=== PATIENT | female | born 1970 | race Caucasian/White ===

== ENCOUNTER 2021-07-08 22:28 | Inpatient (IN) | payer MEDICAID ==
[~2021-07-08] VITALS: Ht 170.2 cm; Wt 172.4 kg
[2021-07-08] MEDS ORDERED: HEPARIN 25,000UTS/250ML PREMIX 250 ML IV PRN (23:00)
[2021-07-08] MEDS ORDERED: ANTI-COAG MONITOR BY PHARMACY. MC PRN (23:15)
[2021-07-08 23:20] LABS: BASO % 0 % (0-3); EOS % 0 % (0-3); HEMATOCRIT 47.3 % (36.0-47.0); HEMOGLOBIN 16.2 g/dL (12.0-15.5); LYMPH # 1.8 x10^3/uL (1.0-4.8); LYMPH % 19 % (24-48); MEAN CORPUSCULAR HEMOGLOBIN 33 pg (25-35); MEAN CORPUSCULAR HGB CONC 34 g/dL (31-37); MEAN CORPUSCULAR VOLUME 96 fL (79-100); MONO # 0.7 x10^3/uL (0.0-1.1); MONO % 8 % (0-9); NEUT % 73 % (31-73); PLATELET COUNT 177 x10^3/uL (140-400); RED BLOOD COUNT 4.91 x10^6/uL (3.50-5.40); RED CELL DISTRIBUTION WIDTH 13.1 % (11.5-14.5); WHITE BLOOD COUNT 9.6 x10^3/uL (4.0-11.0)
[2021-07-08] MEDS ORDERED: HEPARIN for ARTERIAL LINE 1,500 ML ONE (23:25)
[2021-07-08] MEDS ORDERED: LIDOCAINE 1% Multi-Dose 20 ML VIAL. ONE (23:25)
[2021-07-08] MEDS ORDERED: IODIXANOL 320 MG/ML 100 ML VIAL. ONE (23:25)
[2021-07-08] MEDS ORDERED: MIDAZOLAM HCL/PF 2 MG/2 ML VIAL. ONE (23:26)
[2021-07-08] MEDS ORDERED: fentaNYL PF VIAL 100 MCG/2 ML VIAL ONE (23:26)
[2021-07-08] MEDS ORDERED: HEPARIN for IV BOLUS 10,000 UNIT/10 ML VIAL. IV ONE (23:30)
[2021-07-08 23:31] LABS: PROTHROMBIN TIME PATIENT 13.3 SEC (11.7-14.0)
[2021-07-08 23:35] LABS: CALCIUM 9.3 mg/dL (8.5-10.1); CREATININE 1.3 mg/dL (0.6-1.0); GFR 43.5
--- NOTE | 2021-07-08 23:39 | RAD ---
INDICATION: Reason: STEMI / Spl. Instructions: / History: COMPARISON: None. FINDINGS: Single view of chest obtained. Cardiac silhouette mildly prominent but likely exaggerated by portable technique. Mild interstitial prominence bilaterally. Mild groundglass opacity IMPRESSION: * Mild interstitial and groundglass opacity. Could be from mild edema or interstitial infiltrate Electronically signed by: Luciano Ta MD (07/08/2021 11:36 PM) [id number]
[2021-07-08 23:41] LABS: ALBUMIN 3.8 g/dL (3.4-5.0); ALBUMIN/GLOBULIN RATIO 0.8 (1.0-1.7); TOTAL BILIRUBIN 0.5 mg/dL (0.2-1.0); TOTAL PROTEIN 8.5 g/dL (6.4-8.2)
[2021-07-08] MEDS ORDERED: BIVALIRUDIN 250 MG VIAL. IVP ONE (23:47)
[2021-07-09] VITALS (36 sets, daily range): BP systolic 115–190; BP diastolic 52–112
[2021-07-09] MEDS ORDERED: NITROGLYCERIN PREMIX 250 ML IV ONE (00:02)
[2021-07-09] MEDS ORDERED: NITROGLYCERIN PREMIX 250 ML IV PRN ×2 (00:05→01:30)
[2021-07-09] MEDS ORDERED: TIROFIBAN 12.5MG -0.9% NS 250 ML IV ONE (00:07)
[2021-07-09] MEDS ORDERED: TIROFIBAN 12.5MG -0.9% NS 250 ML IV PRN (00:15)
[2021-07-09] MEDS ORDERED: fentaNYL PF VIAL 100 MCG/2 ML VIAL IV ONE (00:30)
[2021-07-09] MEDS ORDERED: MIDAZOLAM HCL/PF 2 MG/2 ML VIAL. IV ONE (00:30)
[2021-07-09] MEDS ORDERED: LIDOCAINE 1% Multi-Dose 20 ML VIAL. INJ ONE (00:30)
[2021-07-09] MEDS ORDERED: TICAGRELOR 90 MG TABLET. PO ONE (00:45)
[2021-07-09] MEDS ORDERED: IODIXANOL 320 MG/ML 100 ML VIAL. IART ONE (00:45)
--- NOTE | 2021-07-09 00:45 | PDOC2 ---
CONSULT Date of Consult Date of Consult DATE: 07/09/21 TIME: 00:39 Reason for Consult Reason for Consult: Acute myocardial infarction. Referring Physician Referring Physician: ER Identification/Chief Complaint Chief Complaint Chest pain Source Source: Chart review, Patient History of Present Illness Reason for Visit: The patient is a 51-year-old female with a history of COPD who was at a concert last evening and developed shortness of breath and chest pressure. She was brought to the emergency room and her EKG showed inferior ST elevation although no reciprocal changes. She was treated with heparin. Upon evaluation she has a strong family history of coronary artery disease but denies any personal history of coronary disease, diabetes or hypertension. She was initially treated with aspirin and heparin but continues to have chest discomfort although decreased. In this setting we recommended cardiac catheterization. Risks and benefits of emergency heart catheterization were discussed with the patient and she gave consent to proceed. Past Medical History Pulmonary: COPD Past Surgical History Past Surgical History: Other (Left ankle surgery) Family History Family History: Heart Disease Social History Drugs: Marijuana, Other (The patient uses medical marijuana for chronic left ankle pain) Current Problem List Problem List Problems Medical Problems: (1) STEMI (ST elevation myocardial infarction) Status: Acute Current Medications Current Medications Current Medications Heparin Sodium (Porcine) (Heparin Sodium) 4,000 unit 1X ONCE IV Last administered on 07/08/21at 23:27; Start 07/08/21 at 23:30; Stop 07/08/21 at 23:31; Status DC Heparin Sodium/ Dextrose 250 ml @ 10 mls/hr CONT PRN IV PER PROTOCOL Last administered on 07/08/21at 23:27; Start 07/08/21 at 23:00 Info (Anti-Coagulation Monitoring By Pharmacy) 1 each PRN DAILY PRN MC PER PROTOCOL; Start 07/08/21 at 23:15 Iodixanol (Visipaque 320) 100 ml STK-MED ONCE .ROUTE ; Start 07/08/21 at 23:25; Stop 07/08/21 at 23:25; Status DC Lidocaine HCl (Lidocaine 1% 20ml Vial) 20 ml STK-MED ONCE .ROUTE ; Start 07/08/21 at 23:25; Stop 07/08/21 at 23:25; Status DC Heparin Sodium/ Sodium Chloride 1,500 ml @ As Directed STK-MED ONCE .ROUTE ; Start 07/08/21 at 23:25; Stop 07/08/21 at 23:25; Status DC Fentanyl Citrate (Fentanyl 2ml Vial) 100 mcg STK-MED ONCE .ROUTE ; Start 07/08/21 at 23:26; Stop 07/08/21 at 23:27; Status DC Midazolam HCl (Versed) 2 mg STK-MED ONCE .ROUTE ; Start 07/08/21 at 23:26; Stop 07/08/21 at 23:27; Status DC Bivalirudin (Angiomax) 250 mg STK-MED ONCE IVP ; Start 07/08/21 at 23:47; Stop 07/08/21 at 23:48; Status DC Nitroglycerin/ Dextrose 250 ml @ As Directed STK-MED ONCE IV ; Start 07/09/21 at 00:02; Stop 07/09/21 at 00:02; Status DC Tirofiban/Sodium Chloride 250 ml @ As Directed STK-MED ONCE IV ; Start 07/09/21 at 00:07; Stop 07/09/21 at 00:07; Status DC Heparin Sodium/ Sodium Chloride 500 ml @ As Directed STK-MED ONCE .ROUTE ; Start 07/09/21 at 00:11; Stop 07/09/21 at 00:11; Status DC Heparin Sodium/ Sodium Chloride (HEPARIN for ARTERIAL LINE FLUSH) 1,000 unit 1X ONCE IART ; Start 07/09/21 at 00:15; Stop 07/09/21 at 00:35; Status DC Heparin Sodium/ Sodium Chloride (HEPARIN for ARTERIAL LINE FLUSH) 1,000 unit 1X ONCE IART ; Start 07/09/21 at 00:15; Stop 07/09/21 at 00:35; Status DC Midazolam HCl (Versed) 2 mg 1X ONCE IV ; Start 07/09/21 at 00:30; Stop 07/09/21 at 00:35; Status DC Fentanyl Citrate (Fentanyl 2ml Vial) 100 mcg 1X ONCE IV ; Start 07/09/21 at 00:30; Stop 07/09/21 at 00:35; Status DC Iodixanol (Visipaque 320) 100 ml 1X ONCE IART ; Start 07/09/21 at 00:45; Stop 07/09/21 at 00:46 Ticagrelor (Brilinta) 180 mg 1X ONCE PO ; Start 07/09/21 at 00:45; Stop 07/09/21 at 00:46 Lidocaine HCl (Lidocaine 1% 20ml Vial) 20 ml 1X ONCE INJ ; Start 07/09/21 at 00:30; Stop 07/09/21 at 00:35; Status DC Tirofiban/Sodium Chloride 250 ml @ 31.086 mls/ hr CONT PRN IV PER PROTOCOL; Start 07/09/21 at 00:15 Nitroglycerin/ Dextrose 250 ml @ 1.5 mls/hr PRN DAILY PRN IV ELEVATED BP, SEE COMMENTS; Start 07/09/21 at 00:15 Allergies Allergies: Coded Allergies: doxycycline (Verified Allergy, Intermediate, Rash, 07/08/21) meloxicam (Verified Allergy, Intermediate, 07/08/21) ROS Respiratory: YES: Shortness of breath Cardiovascular: yes Chest Pain Physical Exam General: mild distress HEENT: Atraumatic Lungs: Other (Mildly decreased breath sounds) Heart: Regular rate Abdomen: Normal bowel sounds Vitals VITALS Vital Signs Date Time Temp Pulse Resp B/P (MAP) Pulse Ox O2 Delivery O2 Flow Rate FiO2 07/08/21 23:22 70 208/124 (152) 07/08/21 22:28 97.2 20 99 Room Air 97.2 Labs Labs Laboratory Tests Test 07/08/21 22:40 White Blood Count 9.6 x10^3/uL (4.0-11.0) Red Blood Count 4.91 x10^6/uL (3.50-5.40) Hemoglobin 16.2 g/dL (12.0-15.5) Hematocrit 47.3 % (36.0-47.0) Mean Corpuscular Volume 96 fL (79-100) Mean Corpuscular Hemoglobin 33 pg (25-35) Mean Corpuscular Hemoglobin Concent 34 g/dL (31-37) Red Cell Distribution Width 13.1 % (11.5-14.5) Platelet Count 177 x10^3/uL (140-400) Neutrophils (%) (Auto) 73 % (31-73) Lymphocytes (%) (Auto) 19 % (24-48) Monocytes (%) (Auto) 8 % (0-9) Eosinophils (%) (Auto) 0 % (0-3) Basophils (%) (Auto) 0 % (0-3) Neutrophils # (Auto) 7.0 x10^3/uL (1.8-7.7) Lymphocytes # (Auto) 1.8 x10^3/uL (1.0-4.8) Monocytes # (Auto) 0.7 x10^3/uL (0.0-1.1) Eosinophils # (Auto) 0.0 x10^3/uL (0.0-0.7) Basophils # (Auto) 0.0 x10^3/uL (0.0-0.2) Prothrombin Time 13.3 SEC (11.7-14.0) Prothromb Time International Ratio 1.0 (0.8-1.1) Activated Partial Thromboplast Time 29 SEC (24-38) Sodium Level 134 mmol/L (136-145) Potassium Level 4.0 mmol/L (3.5-5.1) Chloride Level 99 mmol/L (98-107) Carbon Dioxide Level 23 mmol/L (21-32) Anion Gap 12 (6-14) Blood Urea Nitrogen 15 mg/dL (7-20) Creatinine 1.3 mg/dL (0.6-1.0) Estimated GFR (Cockcroft-Gault) 43.5 BUN/Creatinine Ratio 12 (6-20) Glucose Level 124 mg/dL (70-99) Calcium Level 9.3 mg/dL (8.5-10.1) Total Bilirubin 0.5 mg/dL (0.2-1.0) Aspartate Amino Transf (AST/SGOT) 34 U/L (15-37) Alanine Aminotransferase (ALT/SGPT) 48 U/L (14-59) Alkaline Phosphatase 62 U/L (46-116) Troponin I High Sensitivity 29 ng/L (4-50) JM-Mec-I-Type Natriuretic Peptide 108 pg/mL (0-124) Total Protein 8.5 g/dL (6.4-8.2) Albumin 3.8 g/dL (3.4-5.0) Albumin/Globulin Ratio 0.8 (1.0-1.7) Laboratory Tests Test 07/08/21 22:40 White Blood Count 9.6 x10^3/uL (4.0-11.0) Red Blood Count 4.91 x10^6/uL (3.50-5.40) Hemoglobin 16.2 g/dL (12.0-15.5) Hematocrit 47.3 % (36.0-47.0) Mean Corpuscular Volume 96 fL (79-100) Mean Corpuscular Hemoglobin 33 pg (25-35) Mean Corpuscular Hemoglobin Concent 34 g/dL (31-37) Red Cell Distribution Width 13.1 % (11.5-14.5) Platelet Count 177 x10^3/uL (140-400) Neutrophils (%) (Auto) 73 % (31-73) Lymphocytes (%) (Auto) 19 % (24-48) Monocytes (%) (Auto) 8 % (0-9) Eosinophils (%) (Auto) 0 % (0-3) Basophils (%) (Auto) 0 % (0-3) Neutrophils # (Auto) 7.0 x10^3/uL (1.8-7.7) Lymphocytes # (Auto) 1.8 x10^3/uL (1.0-4.8) Monocytes # (Auto) 0.7 x10^3/uL (0.0-1.1) Eosinophils # (Auto) 0.0 x10^3/uL (0.0-0.7) Basophils # (Auto) 0.0 x10^3/uL (0.0-0.2) Prothrombin Time 13.3 SEC (11.7-14.0) Prothromb Time International Ratio 1.0 (0.8-1.1) Activated Partial Thromboplast Time 29 SEC (24-38) Sodium Level 134 mmol/L (136-145) Potassium Level 4.0 mmol/L (3.5-5.1) Chloride Level 99 mmol/L (98-107) Carbon Dioxide Level 23 mmol/L (21-32) Anion Gap 12 (6-14) Blood Urea Nitrogen 15 mg/dL (7-20) Creatinine 1.3 mg/dL (0.6-1.0) Estimated GFR (Cockcroft-Gault) 43.5 BUN/Creatinine Ratio 12 (6-20) Glucose Level 124 mg/dL (70-99) Calcium Level 9.3 mg/dL (8.5-10.1) Total Bilirubin 0.5 mg/dL (0.2-1.0) Aspartate Amino Transf (AST/SGOT) 34 U/L (15-37) Alanine Aminotransferase (ALT/SGPT) 48 U/L (14-59) Alkaline Phosphatase 62 U/L (46-116) Troponin I High Sensitivity 29 ng/L (4-50) YP-Abu-X-Type Natriuretic Peptide 108 pg/mL (0-124) Total Protein 8.5 g/dL (6.4-8.2) Albumin 3.8 g/dL (3.4-5.0) Albumin/Globulin Ratio 0.8 (1.0-1.7) Assessment/Plan Assessment/Plan 1. Acute onset of chest pain. Patient has been initially treated with heparin and aspirin. Her EKG shows inferior ST elevation but no reciprocal changes. She has continued to have chest discomfort. In this setting as above we have have recommended emergency cardiac catheterization. Risks and benefits have been discussed with the patient and she has agreed to proceed. 2. History of COPD. Will resume home medications. 3. Morbid obesity. Will check morning lab including glucose and a lipid panel. DIXIE CONTI MD Jul 09, 2021 00:45
[2021-07-09] MEDS ORDERED: TICAGRELOR 90 MG TABLET. ONE (00:49)
--- NOTE | 2021-07-09 01:00 | NUR ---
Pt arrived from [facility]istics [facility] gun[facility] via bed. Pt is alert and oriented. Assessment completed and documented. No needs at this time.
[2021-07-09] MEDS: NITROGLYCERIN PREMIX 250 ML IV PRN (02:31)
--- NOTE | 2021-07-09 04:18 | EKG ---
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
[2021-07-09] MEDS: TIROFIBAN 12.5MG -0.9% NS 250 ML IV PRN ×3 (05:05→17:01)
[2021-07-09] MEDS: ACETAMINOPHEN 325 MG TABLET. PO PRN (06:02)
[2021-07-09] MEDS ORDERED: MORPHINE SULFATE 4 MG/ML INJ. IV ONE (11:15)
--- NOTE | 2021-07-09 12:00 | NUR ---
Pt called in professional housing consultant light at approximately 1100. This nurse went to pt room to answer call light in person. Pt asked "Tell me again why I have this thing in my leg?" This nurse explained the purpose of the sheath and approximately how long it would stay in. This nurse and pt had several discussions throughout the morning about the importance of laying flat and keeping the right leg straight and other pertinent education regarding the sheath, hospital stay and medications. Pt started yelling and cussing at this nurse and stating that she "needed the sheath removed immediately." The pt has been calm and cooperative thus far during this shift. This nurse informed the pt that this nurse would notify the MD and see what the possibilities are. This nurse asked the pt needed repositioning or if pain medication would help the pt be more comfortable. The pt laughed and stated that "tylenol is poison" and that "the hospital won't prescribe the REAL medication that I need" and yelled and cussed this nurse out again. She did state that she "OBVIOUSLY needs something for anxiety." This nurse asked if the pt felt comfortable taking something for anxiety and the pt stated "I am really trying to not get ugly right now. GET OUT OF MY FACE!" This nurse notified c++ professor regarding sheath pain and pt request. This nurse also notified the hospitalist regarding the pt behavior and pt requests for medication. Orders received. Pt agreeable to receive pain and anxiety medication. Medications given to pt. At reassessment pt verbalized that she "felt much better" and denied any further needs.
--- NOTE | 2021-07-09 12:17 | PDOC ---
GENERAL General: History and physical [id number] VITAL SIGNS Vital Signs/I&O: Vital Signs Date Time Temp Pulse Resp B/P (MAP) Pulse Ox O2 Delivery O2 Flow Rate FiO2 07/09/21 11:23 19 07/09/21 09:40 62 152/80 (104) 07/09/21 06:00 94 Nasal Cannula 2.0 07/09/21 04:00 98.3 98.3 I & O 07/08/21 07/08/21 07/09/21 15:00 23:00 07:00 Intake Total 444 ml Output Total 825 ml Balance -381 ml ALLERGIES Allergies: Allergies Coded Allergies Type Severity Reaction Last Updated Verified doxycycline Allergy Intermediate Rash 07/08/21 Yes meloxicam Allergy Intermediate 07/08/21 Yes MEDS Medications: Current Medications Medications (Trade) Dose Ordered Sig/Frankie Route PRN Reason Start Time Stop Time Status Last Admin Dose Admin Heparin Sodium (Porcine) (Heparin Sodium) 4,000 unit 1X ONCE IV 07/08/21 23:30 07/08/21 23:31 DC 07/08/21 23:27 Heparin Sodium/ Dextrose 250 ml @ 10 mls/hr CONT PRN IV PER PROTOCOL 07/08/21 23:00 07/08/21 23:27 Info (Anti-Coagulation Monitoring By Pharmacy) 1 each PRN DAILY PRN MC PER PROTOCOL 07/08/21 23:15 07/09/21 04:47 Heparin Sodium/ Sodium Chloride (HEPARIN for ARTERIAL LINE FLUSH) 1,000 unit 1X ONCE IART 07/09/21 00:15 07/09/21 00:35 DC 07/09/21 01:16 Heparin Sodium/ Sodium Chloride (HEPARIN for ARTERIAL LINE FLUSH) 1,000 unit 1X ONCE IART 07/09/21 00:15 07/09/21 00:35 DC 07/09/21 01:16 Midazolam HCl (Versed) 2 mg 1X ONCE IV 07/09/21 00:30 07/09/21 00:35 DC 07/09/21 01:16 Fentanyl Citrate (Fentanyl 2ml Vial) 100 mcg 1X ONCE IV 07/09/21 00:30 07/09/21 00:35 DC 07/09/21 01:17 Iodixanol (Visipaque 320) 100 ml 1X ONCE IART 07/09/21 00:45 07/09/21 00:46 DC 07/09/21 01:18 Ticagrelor (Brilinta) 180 mg 1X ONCE PO 07/09/21 00:45 07/09/21 00:46 DC 07/09/21 01:18 Lidocaine HCl (Lidocaine 1% 20ml Vial) 20 ml 1X ONCE INJ 07/09/21 00:30 07/09/21 00:35 DC 07/09/21 01:17 Tirofiban/Sodium Chloride 250 ml @ 31.086 mls/ hr CONT PRN IV PER PROTOCOL 07/09/21 00:15 07/09/21 08:36 Nitroglycerin/ Dextrose 250 ml @ 1.5 mls/hr PRN DAILY PRN IV ELEVATED BP, SEE COMMENTS 07/09/21 00:15 07/09/21 02:31 Tirofiban/Sodium Chloride 250 ml @ 31.086 mls/ hr CONT PRN IV SEE ADMIN INSTRUCTIONS 07/09/21 00:15 07/09/21 04:13 DC 07/09/21 01:15 Nitroglycerin/ Dextrose 250 ml @ 0 mls/hr 1X PRN IV ELEVATED BP, SEE COMMENTS 07/09/21 00:05 07/09/21 01:25 DC 07/09/21 01:22 Acetaminophen (Tylenol) 650 mg PRN Q6HRS PRN PO MILD PAIN / TEMP > 100.3'F 07/09/21 06:00 07/09/21 06:02 Lorazepam (Ativan Inj) 1 mg 1X ONCE IVP 07/09/21 11:15 07/09/21 11:16 DC 07/09/21 11:18 Morphine Sulfate (Morphine Sulfate) 3 mg 1X ONCE IV 07/09/21 11:15 07/09/21 11:16 DC 07/09/21 11:23 LAB Lab: Laboratory Tests Test 07/08/21 22:40 07/08/21 23:10 07/09/21 06:10 White Blood Count 9.6 x10^3/uL (4.0-11.0) Red Blood Count 4.91 x10^6/uL (3.50-5.40) Hemoglobin 16.2 g/dL (12.0-15.5) H Hematocrit 47.3 % (36.0-47.0) H Mean Corpuscular Volume 96 fL (79-100) Mean Corpuscular Hemoglobin 33 pg (25-35) Mean Corpuscular Hemoglobin Concent 34 g/dL (31-37) Red Cell Distribution Width 13.1 % (11.5-14.5) Platelet Count 177 x10^3/uL (140-400) Neutrophils (%) (Auto) 73 % (31-73) Lymphocytes (%) (Auto) 19 % (24-48) L Monocytes (%) (Auto) 8 % (0-9) Eosinophils (%) (Auto) 0 % (0-3) Basophils (%) (Auto) 0 % (0-3) Neutrophils # (Auto) 7.0 x10^3/uL (1.8-7.7) Lymphocytes # (Auto) 1.8 x10^3/uL (1.0-4.8) Monocytes # (Auto) 0.7 x10^3/uL (0.0-1.1) Eosinophils # (Auto) 0.0 x10^3/uL (0.0-0.7) Basophils # (Auto) 0.0 x10^3/uL (0.0-0.2) Prothrombin Time 13.3 SEC (11.7-14.0) Prothrombin Time INR 1.0 (0.8-1.1) Activated Partial Thromboplast Time 29 SEC (24-38) Sodium Level 134 mmol/L (136-145) L Potassium Level 4.0 mmol/L (3.5-5.1) Chloride Level 99 mmol/L (98-107) Carbon Dioxide Level 23 mmol/L (21-32) Anion Gap 12 (6-14) Blood Urea Nitrogen 15 mg/dL (7-20) Creatinine 1.3 mg/dL (0.6-1.0) H Estimated GFR (Cockcroft-Gault) 43.5 BUN/Creatinine Ratio 12 (6-20) Glucose Level 124 mg/dL (70-99) H Calcium Level 9.3 mg/dL (8.5-10.1) Total Bilirubin 0.5 mg/dL (0.2-1.0) Aspartate Amino Transferase (AST) 34 U/L (15-37) Alanine Aminotransferase (ALT) 48 U/L (14-59) Alkaline Phosphatase 62 U/L (46-116) Troponin I High Sensitivity 29 ng/L (4-50) WJ-Vmm-Y-Type Natriuretic Peptide 108 pg/mL (0-124) Total Protein 8.5 g/dL (6.4-8.2) H Albumin 3.8 g/dL (3.4-5.0) Albumin/Globulin Ratio 0.8 (1.0-1.7) L SARS-CoV-2 Antigen (Rapid) Negative (NEGATIVE) Heparin Anti-Xa Act, Unfractionated < 0.10 IU/mL (0.30-0.70) L Laboratory Tests 07/08/21 22:40 Laboratory Tests 07/08/21 22:40 Justifications for Admission Other Justification MEG SOMMERS MD Jul 09, 2021 12:17
--- NOTE | 2021-07-09 14:43 | PDOC ---
PROGRESS NOTES Date of Service DATE: 07/09/21 TIME: 14:40 Subjective Subjective Patient seen and examined Objective Objective Vital Signs Date Time Temp Pulse Resp B/P (MAP) Pulse Ox O2 Delivery O2 Flow Rate FiO2 07/09/21 12:00 Nasal Cannula 2.0 07/09/21 11:23 19 07/09/21 09:40 62 152/80 (104) 07/09/21 06:00 94 07/09/21 04:00 98.3 98.3 Intake and Output 07/09/21 07:00 Intake Total 444 ml Output Total 825 ml Balance -381 ml Intake Oral 120 ml IV Total 324 ml Output Urine Total 825 ml Physical Exam Abdomen: Normal bowel sounds Heart: Regular rate General: mild distress Lungs: Other (Slightly decreased breath sounds) Assessment Assessment Problems Medical Problems: (1) STEMI (ST elevation myocardial infarction) Status: Acute 1. Non-ST elevated myocardial infarction. Catheterization last night showed a moderate size mobile thrombus in the mid to distal right coronary artery with flow to the distal right coronary artery. Patient has been treated with Aggrastat overnight. She is now chest pain-free. Initial troponin of 29 with further troponins pending. We will continue present treatments. We we will consider discontinuing Aggrastat tomorrow and discontinuing her sheath pending her clinical course. 2. History of COPD. Will resume home medications. 3. Morbid obesity. Morning lab pending. 4. Anxiety. Patient uses medical marijuana at home. We will treat with antianxiety and pain medications as needed. Comment Review of Relevant I have reviewed the following items leandro (where applicable) has been applied. Labs Laboratory Tests Test 07/08/21 22:40 07/08/21 23:10 07/09/21 06:10 White Blood Count 9.6 x10^3/uL (4.0-11.0) Red Blood Count 4.91 x10^6/uL (3.50-5.40) Hemoglobin 16.2 g/dL (12.0-15.5) Hematocrit 47.3 % (36.0-47.0) Mean Corpuscular Volume 96 fL (79-100) Mean Corpuscular Hemoglobin 33 pg (25-35) Mean Corpuscular Hemoglobin Concent 34 g/dL (31-37) Red Cell Distribution Width 13.1 % (11.5-14.5) Platelet Count 177 x10^3/uL (140-400) Neutrophils (%) (Auto) 73 % (31-73) Lymphocytes (%) (Auto) 19 % (24-48) Monocytes (%) (Auto) 8 % (0-9) Eosinophils (%) (Auto) 0 % (0-3) Basophils (%) (Auto) 0 % (0-3) Neutrophils # (Auto) 7.0 x10^3/uL (1.8-7.7) Lymphocytes # (Auto) 1.8 x10^3/uL (1.0-4.8) Monocytes # (Auto) 0.7 x10^3/uL (0.0-1.1) Eosinophils # (Auto) 0.0 x10^3/uL (0.0-0.7) Basophils # (Auto) 0.0 x10^3/uL (0.0-0.2) Prothrombin Time 13.3 SEC (11.7-14.0) Prothromb Time International Ratio 1.0 (0.8-1.1) Activated Partial Thromboplast Time 29 SEC (24-38) Sodium Level 134 mmol/L (136-145) Potassium Level 4.0 mmol/L (3.5-5.1) Chloride Level 99 mmol/L (98-107) Carbon Dioxide Level 23 mmol/L (21-32) Anion Gap 12 (6-14) Blood Urea Nitrogen 15 mg/dL (7-20) Creatinine 1.3 mg/dL (0.6-1.0) Estimated GFR (Cockcroft-Gault) 43.5 BUN/Creatinine Ratio 12 (6-20) Glucose Level 124 mg/dL (70-99) Calcium Level 9.3 mg/dL (8.5-10.1) Total Bilirubin 0.5 mg/dL (0.2-1.0) Aspartate Amino Transf (AST/SGOT) 34 U/L (15-37) Alanine Aminotransferase (ALT/SGPT) 48 U/L (14-59) Alkaline Phosphatase 62 U/L (46-116) Troponin I High Sensitivity 29 ng/L (4-50) RN-Nrq-F-Type Natriuretic Peptide 108 pg/mL (0-124) Total Protein 8.5 g/dL (6.4-8.2) Albumin 3.8 g/dL (3.4-5.0) Albumin/Globulin Ratio 0.8 (1.0-1.7) SARS-CoV-2 Antigen (Rapid) Negative (NEGATIVE) Heparin Anti-Xa Act, Unfractionated < 0.10 IU/mL (0.30-0.70) Laboratory Tests Test 07/08/21 22:40 07/08/21 23:10 07/09/21 06:10 White Blood Count 9.6 x10^3/uL (4.0-11.0) Red Blood Count 4.91 x10^6/uL (3.50-5.40) Hemoglobin 16.2 g/dL (12.0-15.5) Hematocrit 47.3 % (36.0-47.0) Mean Corpuscular Volume 96 fL (79-100) Mean Corpuscular Hemoglobin 33 pg (25-35) Mean Corpuscular Hemoglobin Concent 34 g/dL (31-37) Red Cell Distribution Width 13.1 % (11.5-14.5) Platelet Count 177 x10^3/uL (140-400) Neutrophils (%) (Auto) 73 % (31-73) Lymphocytes (%) (Auto) 19 % (24-48) Monocytes (%) (Auto) 8 % (0-9) Eosinophils (%) (Auto) 0 % (0-3) Basophils (%) (Auto) 0 % (0-3) Neutrophils # (Auto) 7.0 x10^3/uL (1.8-7.7) Lymphocytes # (Auto) 1.8 x10^3/uL (1.0-4.8) Monocytes # (Auto) 0.7 x10^3/uL (0.0-1.1) Eosinophils # (Auto) 0.0 x10^3/uL (0.0-0.7) Basophils # (Auto) 0.0 x10^3/uL (0.0-0.2) Prothrombin Time 13.3 SEC (11.7-14.0) Prothromb Time International Ratio 1.0 (0.8-1.1) Activated Partial Thromboplast Time 29 SEC (24-38) Sodium Level 134 mmol/L (136-145) Potassium Level 4.0 mmol/L (3.5-5.1) Chloride Level 99 mmol/L (98-107) Carbon Dioxide Level 23 mmol/L (21-32) Anion Gap 12 (6-14) Blood Urea Nitrogen 15 mg/dL (7-20) Creatinine 1.3 mg/dL (0.6-1.0) Estimated GFR (Cockcroft-Gault) 43.5 BUN/Creatinine Ratio 12 (6-20) Glucose Level 124 mg/dL (70-99) Calcium Level 9.3 mg/dL (8.5-10.1) Total Bilirubin 0.5 mg/dL (0.2-1.0) Aspartate Amino Transf (AST/SGOT) 34 U/L (15-37) Alanine Aminotransferase (ALT/SGPT) 48 U/L (14-59) Alkaline Phosphatase 62 U/L (46-116) Troponin I High Sensitivity 29 ng/L (4-50) DH-Zef-H-Type Natriuretic Peptide 108 pg/mL (0-124) Total Protein 8.5 g/dL (6.4-8.2) Albumin 3.8 g/dL (3.4-5.0) Albumin/Globulin Ratio 0.8 (1.0-1.7) SARS-CoV-2 Antigen (Rapid) Negative (NEGATIVE) Heparin Anti-Xa Act, Unfractionated < 0.10 IU/mL (0.30-0.70) Medications Current Medications Heparin Sodium (Porcine) (Heparin Sodium) 4,000 unit 1X ONCE IV Last administered on 07/08/21at 23:27; Start 07/08/21 at 23:30; Stop 07/08/21 at 23:31; Status DC Heparin Sodium/ Dextrose 250 ml @ 10 mls/hr CONT PRN IV PER PROTOCOL Last administered on 07/08/21at 23:27; Start 07/08/21 at 23:00 Info (Anti-Coagulation Monitoring By Pharmacy) 1 each PRN DAILY PRN MC PER PROTOCOL Last administered on 07/09/21at 04:47; Start 07/08/21 at 23:15 Iodixanol (Visipaque 320) 100 ml STK-MED ONCE .ROUTE ; Start 07/08/21 at 23:25; Stop 07/08/21 at 23:25; Status DC Lidocaine HCl (Lidocaine 1% 20ml Vial) 20 ml STK-MED ONCE .ROUTE ; Start 07/08/21 at 23:25; Stop 07/08/21 at 23:25; Status DC Heparin Sodium/ Sodium Chloride 1,500 ml @ As Directed STK-MED ONCE .ROUTE ; Start 07/08/21 at 23:25; Stop 07/08/21 at 23:25; Status DC Fentanyl Citrate (Fentanyl 2ml Vial) 100 mcg STK-MED ONCE .ROUTE ; Start 07/08/21 at 23:26; Stop 07/08/21 at 23:27; Status DC Midazolam HCl (Versed) 2 mg STK-MED ONCE .ROUTE ; Start 07/08/21 at 23:26; Stop 07/08/21 at 23:27; Status DC Bivalirudin (Angiomax) 250 mg STK-MED ONCE IVP ; Start 07/08/21 at 23:47; Stop 07/08/21 at 23:48; Status DC Nitroglycerin/ Dextrose 250 ml @ As Directed STK-MED ONCE IV ; Start 07/09/21 at 00:02; Stop 07/09/21 at 00:02; Status DC Tirofiban/Sodium Chloride 250 ml @ As Directed STK-MED ONCE IV ; Start 07/09/21 at 00:07; Stop 07/09/21 at 00:07; Status DC Heparin Sodium/ Sodium Chloride 500 ml @ As Directed STK-MED ONCE .ROUTE ; Start 07/09/21 at 00:11; Stop 07/09/21 at 00:11; Status DC Heparin Sodium/ Sodium Chloride (HEPARIN for ARTERIAL LINE FLUSH) 1,000 unit 1X ONCE IART Last administered on 07/09/21at 01:16; Start 07/09/21 at 00:15; Stop 07/09/21 at 00:35; Status DC Heparin Sodium/ Sodium Chloride (HEPARIN for ARTERIAL LINE FLUSH) 1,000 unit 1X ONCE IART Last administered on 07/09/21at 01:16; Start 07/09/21 at 00:15; Stop 07/09/21 at 00:35; Status DC Midazolam HCl (Versed) 2 mg 1X ONCE IV Last administered on 07/09/21at 01:16; Start 07/09/21 at 00:30; Stop 07/09/21 at 00:35; Status DC Fentanyl Citrate (Fentanyl 2ml Vial) 100 mcg 1X ONCE IV Last administered on 07/09/21at 01:17; Start 07/09/21 at 00:30; Stop 07/09/21 at 00:35; Status DC Iodixanol (Visipaque 320) 100 ml 1X ONCE IART Last administered on 07/09/21at 01:18; Start 07/09/21 at 00:45; Stop 07/09/21 at 00:46; Status DC Ticagrelor (Brilinta) 180 mg 1X ONCE PO Last administered on 07/09/21at 01:18; Start 07/09/21 at 00:45; Stop 07/09/21 at 00:46; Status DC Lidocaine HCl (Lidocaine 1% 20ml Vial) 20 ml 1X ONCE INJ Last administered on 07/09/21at 01:17; Start 07/09/21 at 00:30; Stop 07/09/21 at 00:35; Status DC Tirofiban/Sodium Chloride 250 ml @ 31.086 mls/ hr CONT PRN IV PER PROTOCOL Last administered on 07/09/21at 08:36; Start 07/09/21 at 00:15 Nitroglycerin/ Dextrose 250 ml @ 1.5 mls/hr PRN DAILY PRN IV ELEVATED BP, SEE COMMENTS Last administered on 07/09/21at 02:31; Start 07/09/21 at 00:15 Ticagrelor (Brilinta) 90 mg STK-MED ONCE .ROUTE ; Start 07/09/21 at 00:49; Stop 07/09/21 at 00:50; Status DC Tirofiban/Sodium Chloride 250 ml @ 31.086 mls/ hr CONT PRN IV SEE ADMIN INSTRUCTIONS Last administered on 07/09/21at 01:15; Start 07/09/21 at 00:15; Stop 07/09/21 at 04:13; Status DC Nitroglycerin/ Dextrose 250 ml @ 0 mls/hr 1X PRN IV ELEVATED BP, SEE COMMENTS Last administered on 07/09/21at 01:22; Start 07/09/21 at 00:05; Stop 07/09/21 at 01:25; Status DC Nitroglycerin/ Dextrose 250 ml @ 1.5 mls/hr 1X PRN PRN IV ELEVATED BP, SEE COMMENTS; Start 07/09/21 at 01:30 Acetaminophen (Tylenol) 650 mg PRN Q6HRS PRN PO MILD PAIN / TEMP > 100.3'F Last administered on 07/09/21at 06:02; Start 07/09/21 at 06:00 Lorazepam (Ativan Inj) 1 mg 1X ONCE IVP Last administered on 07/09/21at 11:18; Start 07/09/21 at 11:15; Stop 07/09/21 at 11:16; Status DC Morphine Sulfate (Morphine Sulfate) 3 mg 1X ONCE IV Last administered on 07/09/21at 11:23; Start 07/09/21 at 11:15; Stop 07/09/21 at 11:16; Status DC Morphine Sulfate (Morphine Sulfate) 2 mg Q3HRS PRN IVP PAIN; Start 07/09/21 at 11:15 Lorazepam (Ativan Inj) 1 mg TID PRN PRN IVP ANXIETY / AGITATION; Start 07/09/21 at 11:30 Vitals/I & O Vital Sign - Last 24 Hours 07/08/21 07/08/21 07/08/21 07/08/21 22:28 22:30 22:34 22:49 Temp 97.2 97.2 Pulse 69 86 82 83 Resp 20 B/P (MAP) 183/122 (142) 183/122 (142) 205/86 (125) 183/109 (133) Pulse Ox 99 O2 Delivery Room Air 07/08/21 07/08/21 07/09/21 07/09/21 23:00 23: 00:50 01:00 Temp 98.1 98.1 Pulse 95 70 67 62 Resp 21 20 B/P (MAP) 189/119 (142) 208/124 (152) 166/87 Pulse Ox 96 97 O2 Delivery Nasal Cannula Nasal Cannula O2 Flow Rate 2.0 2.0 07/09/21 07/09/21 07/09/21 07/09/21 01:00 01:17 02:00 02:20 Pulse 60 56 Resp 21 20 20 B/P (MAP) 168/86 176/84 Pulse Ox 96 98 98 O2 Delivery Nasal Cannula Nasal Cannula Nasal Cannula Nasal Cannula O2 Flow Rate 2.0 2.0 2.0 2.0 07/09/21 07/09/21 07/09/21 07/09/21 02:25 02:30 02:40 02:50 Pulse 56 64 58 58 Resp 20 20 20 20 B/P (MAP) 190/88 170/86 174/82 180/84 Pulse Ox 98 97 97 97 O2 Delivery Nasal Cannula Nasal Cannula Nasal Cannula Nasal Cannula O2 Flow Rate 2.0 2.0 2.0 2.0 07/09/21 07/09/21 07/09/21 07/09/21 03:00 03:30 04:00 04:00 Temp 98.3 98.3 Pulse 60 60 62 Resp 20 20 20 B/P (MAP) 178/84 170/82 160/78 Pulse Ox 96 96 94 O2 Delivery Nasal Cannula Nasal Cannula Nasal Cannula Nasal Cannula O2 Flow Rate 2.0 2.0 2.0 2.0 07/09/21 07/09/21 07/09/21 07/09/21 05:00 06:00 08:00 09:40 Pulse 60 62 62 Resp 18 18 B/P (MAP) 156/76 152/80 152/80 (104) Pulse Ox 94 94 O2 Delivery Nasal Cannula Nasal Cannula Nasal Cannula O2 Flow Rate 2.0 2.0 2.0 07/09/21 07/09/21 07/09/21 11:23 11:53 12:00 Resp 19 O2 Delivery Nasal Cannula Nasal Cannula O2 Flow Rate 2.0 2.0 Intake and Output 07/08/21 07/08/21 07/09/21 15:00 23:00 07:00 Intake Total 444 ml Output Total 825 ml Balance -381 ml Justifications for Admission Other Justification DIXIE CONTI MD Jul 09, 2021 14:43
[2021-07-09] MEDS: ASPIRIN ENTERIC COATED 81 MG TABLET.DR. PO SCH (15:00)
--- NOTE | 2021-07-09 16:00 | NUR ---
Labs were unable to be drawn from arterial line. It no longer pulls back blood or flushes. Notified lab to come draw blood. Notified MD about arterial line status. Orders to remove. Discussed this with pt, she verbalized understanding.
[2021-07-09] MEDS: MORPHINE SULFATE 2 MG/ML INJ. IVP PRN ×3 (16:10→23:11)
--- NOTE | 2021-07-09 17:16 | CARD ---
MR#: [id number] Date of Study: 07/08/2021 Ordering Physician: DIXIE MENA, Referring Physician: DIXIE MENA, Tech: Isabella Connauаннаolena, RT(R) APPROVED REPORT Procedures Selective coronary angiogram. The patient is a 51-year-old female who developed chest discomfort earlier in the evening. She was b rought to the emergency room and her EKG showed inferior ST elevation but no reciprocal changes. She was treated with heparin and aspirin but continued to have discomfort. In this setting a cardiac ca theterization and possible revascularization was recommended. Risks and benefits were discussed with the patient and she gave consent to proceed. After informed consent was obtained the patient was brought to the heart catheterization lab. The ar ea of the right femoral artery was prepared in the usual manner with Betadine, sterile draping and lo angélica anesthetic. An 18-gauge needle was used to enter the right femoral artery, a wire placed and a 6 [place] sheath placed over the wire. A 6 [place] JL 4 diagnostic catheter was used to engage the left coronary system and sequential injections of various views were obtained. A 6 [place] JR4 guide with sideholes was then used to engage the right coronary artery. Sequential injections in various views were obtained. Review of the patient's images showed no left-sided disease. The right coronary was a moderate to moderately large vessel with a mid to distal nonocclusive thrombus present. Distal va sculature had normal flow. The catheter was removed for the patient. The sheath was sutured into pl sk[place]. The patient was moved to the ICU. At the conclusion of the case the patient had no chest pain and there were no immediate complications. Findings. Aortic root pressure of 148/84. Coronaries. Left main. Left main was a moderate size vessel. It had no lesions. Left anterior descending. The LAD was a moderate size vessel. It had no lesions. Left circumflex. The left circumflex was a moderate size vessel. It had no lesions. Right coronary artery. The right coronary was a moderate to moderately large vessel. It had a mid t o distal nonocclusive thrombus present. Distal filling was intact. <Conclusion> Single-vessel coronary artery disease. Nonocclusive thrombus in the right coronary artery as noted above. Patient will be initially treated with Aggrastat. The patient was pain-free at the conclusion of the case. Moderate sedation time of 60 minutes. Fluoroscopy time of 2.0 minutes. Dose. 48 Gycm2 Contrast 69 cc of VISI All protective equipment and devices were used during the procedure. The patient was independently monitored during the procedure. Estimated blood loss of 20 cc. Signed by : Dixie Mena MD Electronically Approved : 07/09/2021 17:16:38
--- NOTE | 2021-07-09 19:04 | HP ---
DATE OF SERVICE: 07/09/2021 ADMIT DATE: 07/09/2021 HISTORY OF PRESENT ILLNESS: This patient is a 51-year-old woman who lives in [place], [place], was in town for a concert when she developed substernal chest pressure and presented to the Emergency Department here for further care. She was seen by Dr. Zambrano in the middle of the night and the cardiac catheterization and Emergency Department notes are pending because of a computer issue in the middle of the night. I personally spoke with Dr. Zambrano and he tells me that she had a nonoccluding thrombus in her distal RCA. The plan was for continuous infusion of Tirofiban over the next 48 hours and then reassessment. The patient was using mushrooms and THC at the concert and some of her agitation this morning may be related to that. At the time of my interview this morning, she was calmer after a dose of Ativan, tells me that she does struggle with anxiety and at times will need Ativan at home. She does not take much otherwise in the way of medications. She had a young nephew in the room and we were not able to explore her illicit drug use any further. She is currently chest pain free. She says that prior to the concert yesterday, she was not having angina or any other symptoms. She did have some occasional mid abdominal pain over the last week. She has severe obesity and is limited by that, but did not feel any worsening shortness of air. She denied any cough, congestion, or any other new specific constitutional symptoms. All other systems reviewed and otherwise negative. PAST MEDICAL HISTORY: 1. Anxiety. 2. Illicit drug use. 3. Morbid obesity. MEDICATIONS: She does not take any routine meds at home. SOCIAL HISTORY: Needs to be explored further when she has more privacy. Young nephew was in the room at the time of the interview and was unable to be left by himself outside of the room. We will explore these items further tomorrow. FAMILY HISTORY: Reviewed in full and noncontributory to the present illness. PHYSICAL EXAMINATION: VITAL SIGNS: Reviewed since admission and are notable for that the patient has been afebrile. Blood pressure has been in the 150s-170s/80, heart rate is in the 60s and regular. She is breathing comfortably and saturating 94-96% on 2 liters. GENERAL: She is sleepy 51-year-old woman, alert and oriented x 3, in no acute distress. HEENT: Unremarkable for acute abnormality. NECK: Soft and supple. No adenopathy or thyromegaly noted. CHEST: Bilateral equal air entry, though diminished throughout. HEART: S1, S2 normal. Regular rate and rhythm. No murmurs or gallops are noted. ABDOMEN: Morbidly obese. Evidence of skin picking noted. No superimposed infection. No masses or organomegaly noted. EXTREMITIES: Exam is notable for a right distal medial foot wound for which she tells me that she has been having home wound care for that. Dressings are clean, dry and intact. LABORATORY DATA: White count is 9.6, hemoglobin is 16.2, platelet count is 177. Chemistry panel notable for creatinine of 1.3. Electrolytes are unremarkable. Liver function is normal. Rapid COVID is negative. INR is normal. Chest x-ray unremarkable. EKG is not available currently for viewing, per report inferior ST elevation without reciprocal changes. ASSESSMENT, PLAN AND IMPRESSION: A 51-year-old woman admitted from a [place] where she developed substernal chest pressure, found to have a nonoccluding thrombus in her right coronary artery. I appreciate Cardiology assistance. Plan is for continuous infusion of antiplatelet medication over the weekend and then repeat cardiac catheterization on Sunday. The patient will be observed in the intensive care unit. She may have sequential compression devices for deep venous thrombosis prophylaxis. She has had periprocedure heparin as well as a continuous antiplatelet infusion. Inpatient status is most appropriate as we anticipate a length of stay of at least 2-4 midnights while we work this through. The patient is a Full Code. We will be sure to stay on top of her anxiety as well. FLORENCE/HUMBERTO/MOH DR: FLORENCE/adwoa TID: [id number] NANI
[2021-07-09] MEDS ORDERED: ALBUTEROL SULFATE 2.5 MG/3 ML NEBU. NEB PRN (21:30)
[2021-07-10] VITALS (19 sets, daily range): BP systolic 100–153; BP diastolic 59–98
[2021-07-10] MEDS ORDERED: TIROFIBAN 12.5MG -0.9% NS 250 ML IV PRN (01:00)
[2021-07-10] MEDS: MORPHINE SULFATE 2 MG/ML INJ. IVP PRN ×4 (02:39→21:02)
[2021-07-10 05:05] LABS: BASO % 1 % (0-3); EOS # 0.1 x10^3/uL (0.0-0.7); EOS % 1 % (0-3); HEMATOCRIT 39.1 % (36.0-47.0); HEMOGLOBIN 13.5 g/dL (12.0-15.5); LYMPH # 2.1 x10^3/uL (1.0-4.8); LYMPH % 31 % (24-48); MEAN CORPUSCULAR HEMOGLOBIN 33 pg (25-35); MEAN CORPUSCULAR HGB CONC 35 g/dL (31-37); MEAN CORPUSCULAR VOLUME 96 fL (79-100); MONO # 0.5 x10^3/uL (0.0-1.1); MONO % 8 % (0-9); NEUT # 4.2 x10^3/uL (1.8-7.7); NEUT % 60 % (31-73); PLATELET COUNT 127 x10^3/uL (140-400); RED BLOOD COUNT 4.06 x10^6/uL (3.50-5.40); RED CELL DISTRIBUTION WIDTH 12.7 % (11.5-14.5); WHITE BLOOD COUNT 6.9 x10^3/uL (4.0-11.0)
[2021-07-10] MEDS: ACETAMINOPHEN 325 MG TABLET. PO PRN ×2 (05:20→13:00)
[2021-07-10 05:27] LABS: ALBUMIN 2.9 g/dL (3.4-5.0); ALBUMIN/GLOBULIN RATIO 0.8 (1.0-1.7); CALCIUM 8.3 mg/dL (8.5-10.1); CREATININE 0.8 mg/dL (0.6-1.0); GFR 76.2; POTASSIUM 3.7 mmol/L (3.5-5.1); TOTAL BILIRUBIN 0.7 mg/dL (0.2-1.0); TOTAL PROTEIN 6.7 g/dL (6.4-8.2)
[2021-07-10 05:30] LABS: CHOLESTEROL/HDL RATIO 3.5
[2021-07-10] MEDS: IPRATRPIUM/ALBUTEROL 0.5/2.5MG 3 ML NEBU. NEB SCH ×4 (07:16→19:42)
[2021-07-10] MEDS: ASPIRIN ENTERIC COATED 81 MG TABLET.DR. PO SCH (09:30)
[2021-07-10] MEDS: NITROGLYCERIN PREMIX 250 ML IV PRN ×2 (09:31→13:43)
[2021-07-10] MEDS ORDERED: TIROFIBAN 5MG -0.9% NS 100 ML IV PRN (09:45)
--- NOTE | 2021-07-10 13:40 | PDOC ---
PROGRESS NOTES Date of Service DATE: 07/10/21 TIME: 13:38 Subjective Subjective Patient seen and examined Objective Objective Vital Signs Date Time Temp Pulse Resp B/P (MAP) Pulse Ox O2 Delivery O2 Flow Rate FiO2 07/10/21 12:55 22 07/10/21 12:00 Nasal Cannula 2.0 07/10/21 11:37 92 07/10/21 06:00 76 150/81 07/10/21 04:00 98.3 98.3 Intake and Output 07/10/21 07:00 Intake Total 2831 ml Output Total 1575 ml Balance 1256 ml Intake Oral 1830 ml IV Total 1001 ml Output Urine Total 1575 ml Physical Exam Abdomen: Normal bowel sounds Heart: Regular rate General: No acute distress Lungs: Other (Minimally decreased breath sounds) Assessment Assessment Problems Medical Problems: (1) STEMI (ST elevation myocardial infarction) Status: Acute 1. Non-ST elevated myocardial infarction. Catheterization Sunday night showed a moderate size mobile thrombus in the mid to distal right coronary artery with flow to the distal right coronary artery. Patient has been treated with Aggrastat. She looks and feels better today. She denies any chest pain. We will continue present treatments and plan repeat catheterization for imaging of the right coronary artery tomorrow. This was discussed with the patient and she has agreed to proceed. 2. History of COPD. Continue present treatment. 3. Morbid obesity. 4. Anxiety. Patient uses medical marijuana at home. She is significantly improved today. Comment Review of Relevant I have reviewed the following items leandro (where applicable) has been applied. Labs Laboratory Tests Test 07/08/21 22:40 07/08/21 23:10 07/09/21 06:10 07/10/21 04:30 White Blood Count 9.6 x10^3/uL (4.0-11.0) 6.9 x10^3/uL (4.0-11.0) Red Blood Count 4.91 x10^6/uL (3.50-5.40) 4.06 x10^6/uL (3.50-5.40) Hemoglobin 16.2 g/dL (12.0-15.5) 13.5 g/dL (12.0-15.5) Hematocrit 47.3 % (36.0-47.0) 39.1 % (36.0-47.0) Mean Corpuscular Volume 96 fL (79-100) 96 fL (79-100) Mean Corpuscular Hemoglobin 33 pg (25-35) 33 pg (25-35) Mean Corpuscular Hemoglobin Concent 34 g/dL (31-37) 35 g/dL (31-37) Red Cell Distribution Width 13.1 % (11.5-14.5) 12.7 % (11.5-14.5) Platelet Count 177 x10^3/uL (140-400) 127 x10^3/uL (140-400) Neutrophils (%) (Auto) 73 % (31-73) 60 % (31-73) Lymphocytes (%) (Auto) 19 % (24-48) 31 % (24-48) Monocytes (%) (Auto) 8 % (0-9) 8 % (0-9) Eosinophils (%) (Auto) 0 % (0-3) 1 % (0-3) Basophils (%) (Auto) 0 % (0-3) 1 % (0-3) Neutrophils # (Auto) 7.0 x10^3/uL (1.8-7.7) 4.2 x10^3/uL (1.8-7.7) Lymphocytes # (Auto) 1.8 x10^3/uL (1.0-4.8) 2.1 x10^3/uL (1.0-4.8) Monocytes # (Auto) 0.7 x10^3/uL (0.0-1.1) 0.5 x10^3/uL (0.0-1.1) Eosinophils # (Auto) 0.0 x10^3/uL (0.0-0.7) 0.1 x10^3/uL (0.0-0.7) Basophils # (Auto) 0.0 x10^3/uL (0.0-0.2) 0.0 x10^3/uL (0.0-0.2) Prothrombin Time 13.3 SEC (11.7-14.0) Prothromb Time International Ratio 1.0 (0.8-1.1) Activated Partial Thromboplast Time 29 SEC (24-38) Sodium Level 134 mmol/L (136-145) 135 mmol/L (136-145) Potassium Level 4.0 mmol/L (3.5-5.1) 3.7 mmol/L (3.5-5.1) Chloride Level 99 mmol/L (98-107) 104 mmol/L (98-107) Carbon Dioxide Level 23 mmol/L (21-32) 25 mmol/L (21-32) Anion Gap 12 (6-14) 6 (6-14) Blood Urea Nitrogen 15 mg/dL (7-20) 10 mg/dL (7-20) Creatinine 1.3 mg/dL (0.6-1.0) 0.8 mg/dL (0.6-1.0) Estimated GFR (Cockcroft-Gault) 43.5 76.2 BUN/Creatinine Ratio 12 (6-20) 13 (6-20) Glucose Level 124 mg/dL (70-99) 90 mg/dL (70-99) Calcium Level 9.3 mg/dL (8.5-10.1) 8.3 mg/dL (8.5-10.1) Total Bilirubin 0.5 mg/dL (0.2-1.0) 0.7 mg/dL (0.2-1.0) Aspartate Amino Transf (AST/SGOT) 34 U/L (15-37) 49 U/L (15-37) Alanine Aminotransferase (ALT/SGPT) 48 U/L (14-59) 33 U/L (14-59) Alkaline Phosphatase 62 U/L (46-116) 50 U/L (46-116) Troponin I High Sensitivity 29 ng/L (4-50) 4761 ng/L (4-50) ZE-Pyx-L-Type Natriuretic Peptide 108 pg/mL (0-124) Total Protein 8.5 g/dL (6.4-8.2) 6.7 g/dL (6.4-8.2) Albumin 3.8 g/dL (3.4-5.0) 2.9 g/dL (3.4-5.0) Albumin/Globulin Ratio 0.8 (1.0-1.7) 0.8 (1.0-1.7) SARS-CoV-2 Antigen (Rapid) Negative (NEGATIVE) Heparin Anti-Xa Act, Unfractionated < 0.10 IU/mL (0.30-0.70) Triglycerides Level 93 mg/dL (0-150) Cholesterol Level 127 mg/dL (0-200) LDL Cholesterol, Calculated 72 mg/dL (0-100) VLDL Cholesterol, Calculated 19 mg/dL (0-40) Non-HDL Cholesterol Calculated 91 mg/dL (0-129) HDL Cholesterol 36 mg/dL (40-60) Cholesterol/HDL Ratio 3.5 Laboratory Tests Test 07/10/21 04:30 White Blood Count 6.9 x10^3/uL (4.0-11.0) Red Blood Count 4.06 x10^6/uL (3.50-5.40) Hemoglobin 13.5 g/dL (12.0-15.5) Hematocrit 39.1 % (36.0-47.0) Mean Corpuscular Volume 96 fL (79-100) Mean Corpuscular Hemoglobin 33 pg (25-35) Mean Corpuscular Hemoglobin Concent 35 g/dL (31-37) Red Cell Distribution Width 12.7 % (11.5-14.5) Platelet Count 127 x10^3/uL (140-400) Neutrophils (%) (Auto) 60 % (31-73) Lymphocytes (%) (Auto) 31 % (24-48) Monocytes (%) (Auto) 8 % (0-9) Eosinophils (%) (Auto) 1 % (0-3) Basophils (%) (Auto) 1 % (0-3) Neutrophils # (Auto) 4.2 x10^3/uL (1.8-7.7) Lymphocytes # (Auto) 2.1 x10^3/uL (1.0-4.8) Monocytes # (Auto) 0.5 x10^3/uL (0.0-1.1) Eosinophils # (Auto) 0.1 x10^3/uL (0.0-0.7) Basophils # (Auto) 0.0 x10^3/uL (0.0-0.2) Sodium Level 135 mmol/L (136-145) Potassium Level 3.7 mmol/L (3.5-5.1) Chloride Level 104 mmol/L (98-107) Carbon Dioxide Level 25 mmol/L (21-32) Anion Gap 6 (6-14) Blood Urea Nitrogen 10 mg/dL (7-20) Creatinine 0.8 mg/dL (0.6-1.0) Estimated GFR (Cockcroft-Gault) 76.2 BUN/Creatinine Ratio 13 (6-20) Glucose Level 90 mg/dL (70-99) Calcium Level 8.3 mg/dL (8.5-10.1) Total Bilirubin 0.7 mg/dL (0.2-1.0) Aspartate Amino Transf (AST/SGOT) 49 U/L (15-37) Alanine Aminotransferase (ALT/SGPT) 33 U/L (14-59) Alkaline Phosphatase 50 U/L (46-116) Troponin I High Sensitivity 4761 ng/L (4-50) Total Protein 6.7 g/dL (6.4-8.2) Albumin 2.9 g/dL (3.4-5.0) Albumin/Globulin Ratio 0.8 (1.0-1.7) Triglycerides Level 93 mg/dL (0-150) Cholesterol Level 127 mg/dL (0-200) LDL Cholesterol, Calculated 72 mg/dL (0-100) VLDL Cholesterol, Calculated 19 mg/dL (0-40) Non-HDL Cholesterol Calculated 91 mg/dL (0-129) HDL Cholesterol 36 mg/dL (40-60) Cholesterol/HDL Ratio 3.5 Medications Current Medications Heparin Sodium (Porcine) (Heparin Sodium) 4,000 unit 1X ONCE IV Last administered on 07/08/21at 23:27; Start 07/08/21 at 23:30; Stop 07/08/21 at 23:31; Status DC Heparin Sodium/ Dextrose 250 ml @ 10 mls/hr CONT PRN IV PER PROTOCOL Last administered on 07/08/21at 23:27; Start 07/08/21 at 23:00; Stop 07/09/21 at 16:56; Status DC Info (Anti-Coagulation Monitoring By Pharmacy) 1 each PRN DAILY PRN MC PER PROTOCOL Last administered on 07/09/21at 04:47; Start 07/08/21 at 23:15; Stop 07/09/21 at 16:56; Status DC Iodixanol (Visipaque 320) 100 ml STK-MED ONCE .ROUTE ; Start 07/08/21 at 23:25; Stop 07/08/21 at 23:25; Status DC Lidocaine HCl (Lidocaine 1% 20ml Vial) 20 ml STK-MED ONCE .ROUTE ; Start 07/08/21 at 23:25; Stop 07/08/21 at 23:25; Status DC Heparin Sodium/ Sodium Chloride 1,500 ml @ As Directed STK-MED ONCE .ROUTE ; Start 07/08/21 at 23:25; Stop 07/08/21 at 23:25; Status DC Fentanyl Citrate (Fentanyl 2ml Vial) 100 mcg STK-MED ONCE .ROUTE ; Start 07/08/21 at 23:26; Stop 07/08/21 at 23:27; Status DC Midazolam HCl (Versed) 2 mg STK-MED ONCE .ROUTE ; Start 07/08/21 at 23:26; Stop 07/08/21 at 23:27; Status DC Bivalirudin (Angiomax) 250 mg STK-MED ONCE IVP ; Start 07/08/21 at 23:47; Stop 07/08/21 at 23:48; Status DC Nitroglycerin/ Dextrose 250 ml @ As Directed STK-MED ONCE IV ; Start 07/09/21 at 00:02; Stop 07/09/21 at 00:02; Status DC Tirofiban/Sodium Chloride 250 ml @ As Directed STK-MED ONCE IV ; Start 07/09/21 at 00:07; Stop 07/09/21 at 00:07; Status DC Heparin Sodium/ Sodium Chloride 500 ml @ As Directed STK-MED ONCE .ROUTE ; Start 07/09/21 at 00:11; Stop 07/09/21 at 00:11; Status DC Heparin Sodium/ Sodium Chloride (HEPARIN for ARTERIAL LINE FLUSH) 1,000 unit 1X ONCE IART Last administered on 07/09/21at 01:16; Start 07/09/21 at 00:15; Stop 07/09/21 at 00:35; Status DC Heparin Sodium/ Sodium Chloride (HEPARIN for ARTERIAL LINE FLUSH) 1,000 unit 1X ONCE IART Last administered on 07/09/21at 01:16; Start 07/09/21 at 00:15; Stop 07/09/21 at 00:35; Status DC Midazolam HCl (Versed) 2 mg 1X ONCE IV Last administered on 07/09/21at 01:16; Start 07/09/21 at 00:30; Stop 07/09/21 at 00:35; Status DC Fentanyl Citrate (Fentanyl 2ml Vial) 100 mcg 1X ONCE IV Last administered on 07/09/21at 01:17; Start 07/09/21 at 00:30; Stop 07/09/21 at 00:35; Status DC Iodixanol (Visipaque 320) 100 ml 1X ONCE IART Last administered on 07/09/21at 01:18; Start 07/09/21 at 00:45; Stop 07/09/21 at 00:46; Status DC Ticagrelor (Brilinta) 180 mg 1X ONCE PO Last administered on 07/09/21at 01:18; Start 07/09/21 at 00:45; Stop 07/09/21 at 00:46; Status DC Lidocaine HCl (Lidocaine 1% 20ml Vial) 20 ml 1X ONCE INJ Last administered on 07/09/21at 01:17; Start 07/09/21 at 00:30; Stop 07/09/21 at 00:35; Status DC Tirofiban/Sodium Chloride 250 ml @ 31.086 mls/ hr CONT PRN IV PER PROTOCOL Last administered on 07/09/21at 17:01; Start 07/09/21 at 00:15; Stop 07/10/21 at 00:56; Status DC Nitroglycerin/ Dextrose 250 ml @ 1.5 mls/hr PRN DAILY PRN IV ELEVATED BP, SEE COMMENTS Last administered on 07/10/21at 09:31; Start 07/09/21 at 00:15 Ticagrelor (Brilinta) 90 mg STK-MED ONCE .ROUTE ; Start 07/09/21 at 00:49; Stop 07/09/21 at 00:50; Status DC Tirofiban/Sodium Chloride 250 ml @ 31.086 mls/ hr CONT PRN IV SEE ADMIN INSTRUCTIONS Last administered on 07/09/21at 01:15; Start 07/09/21 at 00:15; Stop 07/09/21 at 04:13; Status DC Nitroglycerin/ Dextrose 250 ml @ 0 mls/hr 1X PRN IV ELEVATED BP, SEE COMMENTS Last administered on 07/09/21at 01:22; Start 07/09/21 at 00:05; Stop 07/09/21 at 01:25; Status DC Nitroglycerin/ Dextrose 250 ml @ 1.5 mls/hr 1X PRN PRN IV ELEVATED BP, SEE COMMENTS; Start 07/09/21 at 01:30 Acetaminophen (Tylenol) 650 mg PRN Q6HRS PRN PO MILD PAIN / TEMP > 100.3'F Last administered on 07/10/21at 13:00; Start 07/09/21 at 06:00 Lorazepam (Ativan Inj) 1 mg 1X ONCE IVP Last administered on 07/09/21at 11:18; Start 07/09/21 at 11:15; Stop 07/09/21 at 11:16; Status DC Morphine Sulfate (Morphine Sulfate) 3 mg 1X ONCE IV Last administered on 07/09/21at 11:23; Start 07/09/21 at 11:15; Stop 07/09/21 at 11:16; Status DC Morphine Sulfate (Morphine Sulfate) 2 mg Q3HRS PRN IVP PAIN Last administered on 07/10/21at 12:55; Start 07/09/21 at 11:15 Lorazepam (Ativan Inj) 1 mg TID PRN PRN IVP ANXIETY / AGITATION Last administered on 07/10/21at 12:54; Start 07/09/21 at 11:30 Aspirin (Ecotrin) 81 mg DAILYWBKFT PO Last administered on 07/10/21at 09:30; Start 07/09/21 at 15:00 Albuterol/ Ipratropium (Duoneb) 3 ml RTQID NEB Last administered on 07/10/21at 11:35; Start 07/10/21 at 08:00 Albuterol Sulfate (Ventolin Neb Soln) 2.5 mg PRN Q4HRS PRN NEB SHORTNESS OF BREATH Last administered on 07/09/21at 22:00; Start 07/09/21 at 21:30 Tirofiban/Sodium Chloride 250 ml @ 31.086 mls/ hr CONT PRN IV PER PROTOCOL Last administered on 07/10/21at 01:04; Start 07/10/21 at 01:00; Stop 07/10/21 at 09:32; Status DC Tirofiban/Sodium Chloride 100 ml @ 30.96 mls/ hr CONT PRN IV PER PROTOCOL; Start 07/10/21 at 09:45 Vitals/I & O Vital Sign - Last 24 Hours 07/09/21 07/09/21 07/09/21 07/09/21 15:00 16:00 16:00 17:00 Pulse 64 70 58 Resp 21 18 20 B/P (MAP) 115/52 126/75 141/105 Pulse Ox 94 95 96 O2 Delivery Nasal Cannula Nasal Cannula Nasal Cannula Nasal Cannula O2 Flow Rate 2.0 2.0 2.0 2.0 07/09/21 07/09/2107/09/07/09/21 17:15 17:30 17:45 18:00 Pulse 70 62 76 66 Resp 18 18 22 20 B/P (MAP) 143/86 164/112 146/87 173/94 Pulse Ox 95 95 96 93 O2 Delivery Nasal Cannula Nasal Cannula Nasal Cannula Nasal Cannula O2 Flow Rate 2.0 2.0 2.0 2.0 07/09/21 07/09/2107/09/07/09/21 18:15 18:30 19:00 19:16 Pulse 78 74 72 Resp 17 20 22 B/P (MAP) 125/67 179/87 143/86 Pulse Ox 96 93 94 94 O2 Delivery Nasal Cannula Nasal Cannula Nasal Cannula Nasal Cannula O2 Flow Rate 2.0 2.0 2.0 2.0 07/09/2107/09/07/09/07/09/21 19:30 19:46 20:00 20:00 Temp 98.2 98.2 Pulse 64 66 Resp 20 20 B/P (MAP) 176/112 139/79 Pulse Ox 93 94 95 O2 Delivery Nasal Cannula Nasal Cannula Nasal Cannula Nasal Cannula O2 Flow Rate 2.0 2.0 2.0 2.0 07/09/2107/09/07/09/07/09/22 20:30 21:00 22:00 22:00 Pulse 70 64 64 Resp 20 20 20 B/P (MAP) 163/89 139/63 136/61 Pulse Ox 95 94 93 96 O2 Delivery Nasal Cannula Nasal Cannula Nasal Cannula Nasal Cannula O2 Flow Rate 2.0 2.0 2.0 2.0 07/09/2107/09/07/09/07/10/21 23:00 23:11 23:41 00:00 Pulse 68 Resp 18 B/P (MAP) 116/62 Pulse Ox 95 94 94 O2 Delivery Nasal Cannula Nasal Cannula Nasal Cannula Nasal Cannula O2 Flow Rate 2.0 2.0 2.0 2.0 07/10/21 07/10/21 07/10/21 07/10/21 00:00 01:00 02:00 02:39 Temp 98.1 98.1 Pulse 86 74 76 Resp 20 20 20 B/P (MAP) 151/68 100/67 140/60 Pulse Ox 91 93 90 93 O2 Delivery Nasal Cannula Nasal Cannula Nasal Cannula Nasal Cannula O2 Flow Rate 2.0 2.0 2.0 2.0 07/10/21 07/10/21 07/10/21 07/10/21 03:00 03:09 04:00 04:00 Temp 98.3 98.3 Pulse 86 72 Resp 18 22 B/P (MAP) 109/59 150/76 Pulse Ox 95 93 92 O2 Delivery Nasal Cannula Nasal Cannula Nasal Cannula Nasal Cannula O2 Flow Rate 2.0 2.0 2.0 2.0 07/10/21 07/10/21 07/10/21 07/10/21 05:00 05:20 05:50 06:00 Pulse 68 76 Resp 22 20 B/P (MAP) 140/83 150/81 Pulse Ox 92 92 92 90 O2 Delivery Nasal Cannula Nasal Cannula Nasal Cannula Nasal Cannula O2 Flow Rate 2.0 2.0 2.0 2.0 07/10/21 07/10/21 07/10/21 07/10/21 07:16 08:00 11:37 12:00 Pulse Ox 91 92 O2 Delivery Nasal Cannula Nasal Cannula Nasal Cannula Nasal Cannula O2 Flow Rate 3.0 2.0 3.0 2.0 07/10/21 12:55 Intake and Output 07/09/21 07/09/21 07/10/21 15:00 23:00 07:00 Intake Total 600 ml 830 ml 1401 ml Output Total 975 ml 600 ml Balance 600 ml -145 ml 801 ml Justifications for Admission Other Justification DIXIE CONTI MD Jul 10, 2021 13:40
[2021-07-10] MEDS: LISINOPRIL 20 MG TABLET PO SCH (14:38)
--- NOTE | 2021-07-10 15:46 | PDOC ---
GENERAL General: Patient examined chart reviewed no events overnight noted. Appreciate cardiology support. Troponin has bumped indicating a non-ST elevation NC second dany to that RCA clot. Plan is for continued intravenous antiplatelet medication and repeat cardiac cath tomorrow to reassess the mobile nonocclusive thrombus. Patient is really hoping for discharge tomorrow but she is happy to be feeling better. She denies any chest pain or shortness of breath. She is resting comfortably. Problems: (1) Morbid obesity (2) NSTEMI (non-ST elevated myocardial infarction) (3) Coronary artery disease, non-occlusive VITAL SIGNS Vital Signs/I&O: Vital Signs Date Time Temp Pulse Resp B/P (MAP) Pulse Ox O2 Delivery O2 Flow Rate FiO2 07/10/21 15:27 92 Nasal Cannula 3.0 07/10/21 14:38 65 126/63 07/10/21 13:25 16 07/10/21 04:00 98.3 98.3 I & O 07/09/21 07/09/21 07/10/21 15:00 23:00 07:00 Intake Total 600 ml 830 ml 1401 ml Output Total 975 ml 600 ml Balance 600 ml -145 ml 801 ml In general patient is pleasant sleepy this afternoon but alert and oriented x3 no acute distress HEENT exam is unremarkable for acute abnormality Neck is soft and supple no adenopathy or thyromegaly noted Chest bilateral equal air entry though diminished throughout no crackles or wheezes are noted Heart S1-S2 normal regular rate and rhythm no murmurs or gallops are noted Abdomen is obese soft nontender nondistended no masses organomegaly noted Extremity exam is unremarkable for acute abnormality ALLERGIES Allergies: Allergies Coded Allergies Type Severity Reaction Last Updated Verified doxycycline Allergy Intermediate Rash 07/08/21 Yes meloxicam Allergy Intermediate 07/08/21 Yes MEDS Medications: Current Medications Medications (Trade) Dose Ordered Sig/Frankie Start Time Stop Time Status Last Admin Dose Admin Acetaminophen (Tylenol) 650 mg PRN Q6HRS PRN 07/09/21 06:00 07/10/21 13:00 Albuterol Sulfate (Ventolin Neb Soln) 2.5 mg PRN Q4HRS PRN 07/09/21 21:30 07/09/21 22:00 Albuterol/ Ipratropium (Duoneb) 3 ml RTQID 07/10/21 08:00 07/10/21 15:26 Aspirin (Ecotrin) 81 mg DAILYWBKFT 07/09/21 15:00 07/10/21 09:30 Atorvastatin Calcium (Lipitor) 20 mg QHS 07/10/21 21:00 Bivalirudin (Angiomax) 250 mg STK-MED ONCE 07/08/21 23:47 07/08/21 23:48 DC Fentanyl Citrate (Fentanyl 2ml Vial) 100 mcg 1X ONCE 07/09/21 00:30 07/09/21 00:35 DC 07/09/21 01:17 Heparin Sodium (Porcine) (Heparin Sodium) 4,000 unit 1X ONCE 07/08/21 23:30 07/08/21 23:31 DC 07/08/21 23:27 Heparin Sodium/ Dextrose 250 ml @ 10 mls/hr CONT PRN 07/08/21 23:00 07/09/21 16:56 DC 07/08/21 23:27 Heparin Sodium/ Sodium Chloride (HEPARIN for ARTERIAL LINE FLUSH) 1,000 unit 1X ONCE 07/09/21 00:15 07/09/21 00:35 DC 07/09/21 01:16 Info (Anti-Coagulation Monitoring By Pharmacy) 1 each PRN DAILY PRN 07/08/21 23:15 07/09/21 16:56 DC 07/09/21 04:47 Iodixanol (Visipaque 320) 100 ml 1X ONCE 07/09/21 00:45 07/09/21 00:46 DC 07/09/21 01:18 Lidocaine HCl (Lidocaine 1% 20ml Vial) 20 ml 1X ONCE 07/09/21 00:30 07/09/21 00:35 DC 07/09/21 01:17 Lisinopril (Prinivil) 20 mg DAILY 07/10/21 13:45 07/10/21 14:38 Lorazepam (Ativan Inj) 1 mg TID PRN PRN 07/09/21 11:30 07/10/21 12:54 Metoprolol Tartrate (Lopressor) 25 mg BID 07/10/21 21:00 Midazolam HCl (Versed) 2 mg 1X ONCE 07/09/21 00:30 07/09/21 00:35 DC 07/09/21 01:16 Morphine Sulfate (Morphine Sulfate) 2 mg Q3HRS PRN 07/09/21 11:15 07/10/21 12:55 Nitroglycerin/ Dextrose 250 ml @ 1.5 mls/hr 1X PRN PRN 07/09/21 01:30 07/10/21 13:51 DC Sodium Chloride 1,000 ml @ 60 mls/hr [id number] 07/11/21 08:00 Ticagrelor (Brilinta) 90 mg BID 07/10/21 21:00 Tirofiban/Sodium Chloride 100 ml @ 30.96 mls/ hr CONT PRN 07/10/21 09:45 07/10/21 13:42 Current Medications Medications (Trade) Dose Ordered Sig/Frankie Route PRN Reason Start Time Stop Time Status Last Admin Dose Admin Albuterol/ Ipratropium (Duoneb) 3 ml RTQID NEB 07/10/21 08:00 07/10/21 15:26 Albuterol Sulfate (Ventolin Neb Soln) 2.5 mg PRN Q4HRS PRN NEB SHORTNESS OF BREATH 07/09/21 21:30 07/09/21 22:00 Tirofiban/Sodium Chloride 250 ml @ 31.086 mls/ hr CONT PRN IV PER PROTOCOL 07/10/21 01:00 07/10/21 09:32 DC 07/10/21 01:04 Tirofiban/Sodium Chloride 100 ml @ 30.96 mls/ hr CONT PRN IV PER PROTOCOL 07/10/21 09:45 07/10/21 13:42 Lisinopril (Prinivil) 20 mg DAILY PO 07/10/21 13:45 07/10/21 14:38 LAB Lab: Laboratory Tests Test 07/10/21 04:30 White Blood Count 6.9 x10^3/uL (4.0-11.0) Red Blood Count 4.06 x10^6/uL (3.50-5.40) Hemoglobin 13.5 g/dL (12.0-15.5) Hematocrit 39.1 % (36.0-47.0) Mean Corpuscular Volume 96 fL (79-100) Mean Corpuscular Hemoglobin 33 pg (25-35) Mean Corpuscular Hemoglobin Concent 35 g/dL (31-37) Red Cell Distribution Width 12.7 % (11.5-14.5) Platelet Count 127 x10^3/uL (140-400) L Neutrophils (%) (Auto) 60 % (31-73) Lymphocytes (%) (Auto) 31 % (24-48) Monocytes (%) (Auto) 8 % (0-9) Eosinophils (%) (Auto) 1 % (0-3) Basophils (%) (Auto) 1 % (0-3) Neutrophils # (Auto) 4.2 x10^3/uL (1.8-7.7) Lymphocytes # (Auto) 2.1 x10^3/uL (1.0-4.8) Monocytes # (Auto) 0.5 x10^3/uL (0.0-1.1) Eosinophils # (Auto) 0.1 x10^3/uL (0.0-0.7) Basophils # (Auto) 0.0 x10^3/uL (0.0-0.2) Sodium Level 135 mmol/L (136-145) L Potassium Level 3.7 mmol/L (3.5-5.1) Chloride Level 104 mmol/L (98-107) Carbon Dioxide Level 25 mmol/L (21-32) Anion Gap 6 (6-14) Blood Urea Nitrogen 10 mg/dL (7-20) Creatinine 0.8 mg/dL (0.6-1.0) Estimated GFR (Cockcroft-Gault) 76.2 BUN/Creatinine Ratio 13 (6-20) Glucose Level 90 mg/dL (70-99) Calcium Level 8.3 mg/dL (8.5-10.1) L Total Bilirubin 0.7 mg/dL (0.2-1.0) Aspartate Amino Transferase (AST) 49 U/L (15-37) H Alanine Aminotransferase (ALT) 33 U/L (14-59) Alkaline Phosphatase 50 U/L (46-116) Troponin I High Sensitivity 4761 ng/L (4-50) H Total Protein 6.7 g/dL (6.4-8.2) Albumin 2.9 g/dL (3.4-5.0) L Albumin/Globulin Ratio 0.8 (1.0-1.7) L Triglycerides Level 93 mg/dL (0-150) Cholesterol Level 127 mg/dL (0-200) LDL Cholesterol, Calculated 72 mg/dL (0-100) VLDL Cholesterol, Calculated 19 mg/dL (0-40) Non-HDL Cholesterol Calculated 91 mg/dL (0-129) HDL Cholesterol 36 mg/dL (40-60) L Cholesterol/HDL Ratio 3.5 Laboratory Tests 07/10/21 04:30 Laboratory Tests 07/10/21 04:30 ASSESSMENT & PLAN A&P Plan as noted above This note was created using [employer] and may have omissions and/or errors due to the 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 Justifications for Admission Other Justification MEG SOMMERS MD Jul 10, 2021 15:46
--- NOTE | 2021-07-10 15:52 | CARD ---
MR#: [id number] Date of Study: 07/10/2021 Ordering Physician: DIXIE CONTI, Referring Physician: Brandie CASTANO: Kelsie Starks [facility] APPROVED REPORT EXAM: Two-dimensional and M-mode echocardiogram with Doppler and color Doppler. Other Information Quality : Teclnically LimitedHR: 67bpm Rhythm : NSR INDICATION Cardiac Disease: CAD Chest Pain RISK FACTORS Hypertension Obesity Hyperlipidemia LEFT VENTRICLE Technically difficult and limited echocardiogram. The left ventricle is normal size. There is border line to mild concentric left ventricular hypertrophy. The left ventricular systolic function is robin l. LV ejection fraction is estimated at 50 to 55%. Within the limits of the study there is normal LV segmental wall motion. RIGHT VENTRICLE The right ventricle is normal size. ATRIA The left atrium size is normal. The right atrium size is normal. AORTIC VALVE The aortic valve is normal in structure and function. There is no significant aortic valvular stenosi s. MITRAL VALVE The mitral valve is normal in structure and function. There is no evidence of mitral valve prolapse. There is no mitral valve stenosis. TRICUSPID VALVE The tricuspid valve is normal in structure and function. Doppler and Color Flow revealed no tricuspid valve regurgitation noted. GREAT VESSELS The aortic root is normal in size. The ascending aorta is normal in size. Due to poor image quality, the IVC could not be assessed. PERICARDIAL EFFUSION There is no evidence of significant pericardial effusion. Critical Notification Critical Value: No <Conclusion> Technically difficult and limited echocardiogram. The left ventricle is normal size. The left ventricular systolic function is normal. LV ejection fraction is estimated at 50 to 55%. Within the limits of the study there is normal LV segmental wall motion. There is borderline to mild concentric left ventricular hypertrophy. There is no significant aortic valvular stenosis. There is no mitral valve stenosis. Doppler and Color Flow revealed no tricuspid valve regurgitation noted. Signed by : Dixie Conti MD Electronically Approved : 07/10/2021 15:51:35
--- NOTE | 2021-07-10 20:03 | NUR ---
Pt would remove BP cuff throughout the day and BP were unable to be collected periodically.
[2021-07-10] MEDS ORDERED: ATORVASTATIN CALCIUM 20 MG TABLET PO SCH (21:00)
[2021-07-10] MEDS: TICAGRELOR 90 MG TABLET. PO SCH (21:00)
[2021-07-10] MEDS: METOPROLOL TART IMMED RELEASE 25 MG TABLET. PO SCH (21:01)
[2021-07-11] VITALS (26 sets, daily range): BP systolic 107–198; BP diastolic 58–101
[2021-07-11] MEDS: MORPHINE SULFATE 2 MG/ML INJ. IVP PRN ×4 (00:12→21:11)
[2021-07-11] MEDS: NITROGLYCERIN PREMIX 250 ML IV PRN ×2 (02:00→09:08)
[2021-07-11 05:13] LABS: BASO % 1 % (0-3); EOS # 0.1 x10^3/uL (0.0-0.7); EOS % 2 % (0-3); HEMATOCRIT 39.6 % (36.0-47.0); HEMOGLOBIN 13.4 g/dL (12.0-15.5); LYMPH # 2.1 x10^3/uL (1.0-4.8); LYMPH % 34 % (24-48); MEAN CORPUSCULAR HEMOGLOBIN 33 pg (25-35); MEAN CORPUSCULAR HGB CONC 34 g/dL (31-37); MEAN CORPUSCULAR VOLUME 97 fL (79-100); MONO # 0.5 x10^3/uL (0.0-1.1); MONO % 9 % (0-9); NEUT # 3.5 x10^3/uL (1.8-7.7); NEUT % 55 % (31-73); PLATELET COUNT 144 x10^3/uL (140-400); RED CELL DISTRIBUTION WIDTH 12.9 % (11.5-14.5); WHITE BLOOD COUNT 6.4 x10^3/uL (4.0-11.0)
[2021-07-11 05:27] LABS: CALCIUM 8.4 mg/dL (8.5-10.1); CREATININE 0.8 mg/dL (0.6-1.0); GFR 76.2; POTASSIUM 3.8 mmol/L (3.5-5.1)
--- NOTE | 2021-07-11 07:48 | PDOC ---
[employer] PROGRESS NOTE Date of Service DOS: DATE: 07/11/21 TIME: 07:47 Chief Complaint Chief Complaint Acute coronary syndrome - right coronary artery occlusive disease, non- obstructing History of COPD. Will resume home medications. Morbid obesity - counseled on lifestyle modification History of Present Illness History of Present Illness Ms Mendoza is a 51 yo female admitted for chest pain and shortness of breath. We urgently to cardiac catheterization found with clot in the RCA some distal perfusion noted. Admitted to ICU on heparin gtt. 07/11: On nitroglycerin gtt. pain improved shortness of breath still present. Plan for coronary angiogram today with potential intervention on RCA. Discussed with patient bedside Vitals/I&O Vitals/I&O: Vital Signs Date Time Temp Pulse Resp B/P (MAP) Pulse Ox O2 Delivery O2 Flow Rate FiO2 07/11/21 06:00 72 20 125/72 93 Nasal Cannula 2.0 07/11/21 04:00 98.3 98.3 I & O 07/10/21 07/10/21 07/11/21 14:59 22:59 06:59 Intake Total 600 ml 300 ml 800 ml Output Total 400 ml 750 ml 25 ml Balance 200 ml -450 ml 775 ml Physical Exam General: No acute distress Heart: Regular rate Abdomen: Normal bowel sounds Labs Labs: Laboratory Tests Test 07/11/21 04:45 White Blood Count 6.4 x10^3/uL (4.0-11.0) Red Blood Count 4.10 x10^6/uL (3.50-5.40) Hemoglobin 13.4 g/dL (12.0-15.5) Hematocrit 39.6 % (36.0-47.0) Mean Corpuscular Volume 97 fL (79-100) Mean Corpuscular Hemoglobin 33 pg (25-35) Mean Corpuscular Hemoglobin Concent 34 g/dL (31-37) Red Cell Distribution Width 12.9 % (11.5-14.5) Platelet Count 144 x10^3/uL (140-400) Neutrophils (%) (Auto) 55 % (31-73) Lymphocytes (%) (Auto) 34 % (24-48) Monocytes (%) (Auto) 9 % (0-9) Eosinophils (%) (Auto) 2 % (0-3) Basophils (%) (Auto) 1 % (0-3) Neutrophils # (Auto) 3.5 x10^3/uL (1.8-7.7) Lymphocytes # (Auto) 2.1 x10^3/uL (1.0-4.8) Monocytes # (Auto) 0.5 x10^3/uL (0.0-1.1) Eosinophils # (Auto) 0.1 x10^3/uL (0.0-0.7) Basophils # (Auto) 0.0 x10^3/uL (0.0-0.2) Sodium Level 137 mmol/L (136-145) Potassium Level 3.8 mmol/L (3.5-5.1) Chloride Level 104 mmol/L (98-107) Carbon Dioxide Level 28 mmol/L (21-32) Anion Gap 5 (6-14) Blood Urea Nitrogen 11 mg/dL (7-20) Creatinine 0.8 mg/dL (0.6-1.0) Estimated GFR (Cockcroft-Gault) 76.2 Glucose Level 82 mg/dL (70-99) Calcium Level 8.4 mg/dL (8.5-10.1) Assessment and Plan Assessmemt and Plan Problems Medical Problems: (1) STEMI (ST elevation myocardial infarction) Status: Acute Comment Review of Relevant I have reviewed the following items leandro (where applicable) has been applied. Medications: Current Medications Medications (Trade) Dose Ordered Sig/Frankie Route PRN Reason Start Time Stop Time Status Last Admin Dose Admin Albuterol/ Ipratropium (Duoneb) 3 ml RTQID NEB 07/10/21 08:00 07/10/21 19:42 Tirofiban/Sodium Chloride 100 ml @ 30.96 mls/ hr CONT PRN IV PER PROTOCOL 07/10/21 09:45 07/10/21 13:42 Ticagrelor (Brilinta) 90 mg BID PO 07/10/21 21:00 07/10/21 21:00 Atorvastatin Calcium (Lipitor) 20 mg QHS PO 07/10/21 21:00 07/10/21 21:01 Metoprolol Tartrate (Lopressor) 25 mg BID PO 07/10/21 21:00 07/10/21 21:01 Lisinopril (Prinivil) 20 mg DAILY PO 07/10/21 13:45 07/10/21 14:38 Justifications for Admission Other Justification YAEL JORDAN MD Jul 11, 2021 07:48
[2021-07-11] MEDS: ASPIRIN ENTERIC COATED 81 MG TABLET.DR. PO SCH ×2 (08:00→12:49)
[2021-07-11] MEDS: IV NORMAL SALINE 1000ML BAG 1,000 ML IV SCH (08:00)
[2021-07-11] MEDS: IPRATRPIUM/ALBUTEROL 0.5/2.5MG 3 ML NEBU. NEB SCH ×4 (08:57→20:00)
[2021-07-11] MEDS: LISINOPRIL 20 MG TABLET PO SCH (09:00)
[2021-07-11] MEDS: METOPROLOL TART IMMED RELEASE 25 MG TABLET. PO SCH ×2 (09:00→21:11)
[2021-07-11] MEDS: TICAGRELOR 90 MG TABLET. PO SCH ×2 (09:00→21:11)
[2021-07-11] MEDS ORDERED: LIDOCAINE 1% PF 2 ML VIAL. ONE (11:20)
[2021-07-11] MEDS ORDERED: IODIXANOL 320 MG/ML 100 ML VIAL. ONE (11:20)
[2021-07-11] MEDS ORDERED: VERAPAMIL 5 MG/2 ML VIAL. ONE (11:41)
[2021-07-11] MEDS ORDERED: MIDAZOLAM HCL/PF 2 MG/2 ML VIAL. ONE ×2 (11:41→11:53)
[2021-07-11] MEDS ORDERED: NITROGLYCERIN 200 MCG/2 ML SYRINGE FOR CATH/VASC LAB. ONE ×3 (11:41→12:09)
[2021-07-11] MEDS ORDERED: fentaNYL PF VIAL 100 MCG/2 ML VIAL ONE ×2 (11:41→12:02)
[2021-07-11] MEDS ORDERED: HEPARIN for IV BOLUS 10,000 UNIT/10 ML VIAL. ONE (11:41)
[2021-07-11] MEDS ORDERED: fentaNYL PF VIAL 100 MCG/2 ML VIAL IV ONE (11:45)
[2021-07-11] MEDS ORDERED: IODIXANOL 320 MG/ML 100 ML VIAL. IART ONE (11:45)
[2021-07-11] MEDS ORDERED: MIDAZOLAM HCL/PF 2 MG/2 ML VIAL. IV ONE (11:45)
[2021-07-11] MEDS ORDERED: VERAPAMIL 5 MG/2 ML VIAL. IART ONE (11:45)
[2021-07-11] MEDS ORDERED: HEPARIN for IV BOLUS 10,000 UNIT/10 ML VIAL. IART ONE (11:45)
[2021-07-11] MEDS ORDERED: LIDOCAINE 1% PF 2 ML VIAL. INJ ONE (11:45)
[2021-07-11] MEDS ORDERED: NITROGLYCERIN 200 MCG/2 ML SYRINGE FOR CATH/VASC LAB. IART ONE ×2 (11:45→12:15)
[2021-07-11] MEDS ORDERED: BIVALIRUDIN 250 MG VIAL. IVP ONE ×3 (11:55→12:15)
[2021-07-11] MEDS ORDERED: CONTRAST GIVEN. MC PRN (12:00)
--- NOTE | 2021-07-11 12:27 | PDOC ---
MODERATE SEDATION ASSESSMENT RISKS/ALTERNATIVES Risks/Alternatives Risks and alternatives of this type of sedation and procedure discussed with: RISK/ALTERNATIVES: Patient H & P ON CHART H & P H & P on chart and reviewed for co-morbid conditions and appropriate labs. H&P ON CHART: Yes STATUS PREG STATUS ASSESSED: N/A MEDS/ALLERGIES REVIEWED Meds/Allergies Reviewed Medications and Allergies including time and route of recently administered narcotics and sedatives. MEDS/ALLERGIES REVIEWED: Yes ASA RATING ASA RATING: III AIRWAY ASSESSMENT Airway Assessment Airway patency, oral function limitations, presence of caps, crowns, dentures, partials, and ability to extend neck assessed. AIRWAY ASSESSMENT: Yes MALLAMPATI SCORE MALLAMPATI SCORE: II PRE-SEDATION ASSESSMENT PRE-SEDATION ASSESSMENT: Yes RAHUL NAVARRO MD Jul 11, 2021 12:27
[2021-07-11] MEDS ORDERED: IV 1/2 NORMAL SALINE 1,000 ML IV SCH (12:30)
--- NOTE | 2021-07-11 12:45 | CARD ---
MR#: [id number] Date of Study: 07/11/2021 Ordering Physician: DIXIE CONTI, Referring Physician: DIXIE CONTI, Tech: RT Selene(R) APPROVED REPORT Technologist: RT Selene(R) Nurse: Ammy Rausch RN Procedure(s) performed: 1. Left heart catheterization and selective coronary angiography via right t ransradial approach 2. Successful aspiration thrombectomy and PCI/stent placement to the right coronary artery FLUORO TIME: 10.6 MIN DOSE:101 Gycm2 Contrast: 134ccs Mod Sed: 47min INDICATION The indication(s) include : 51-year-old female presented with acute myocardial infarction and was not ed to have thrombus in the distal RCA on cardiac catheterization 07/08/2021. Since patient was chest p ain-free and there was distal flow, she was placed on heparin and Aggrastat. She presented today for repeat cardiac catheterization to follow-up on the thrombus.. [facility] Clinical Frailty Scale [facility] Clinical Frailty Scale: Mildly Frail Heart Failure Heart Failure: Yes If Yes, Newly Diagnosed: Yes If Yes, HF Type: Systolic If Yes, NYHA Class: Class II CASE TECHNIQUE IV conscious sedation was used throughout procedure with appropriate monitoring and was performed in the presence of a registered nurse who was an independent trained observer other than the physician p erforming the procedure. During this case, Fluoroscopy and low osmolar contrast were used for imaging . Specimen(s) Removed: No Estimated Blood loss: 15 cc's. PROCEDURE NARRATIVE After explaining the risks, benefits and alternative options, informed consent was obtained from hui ent. Patient was brought to the cardiac [employer] Director and right wrist was prepped and draped in the usual fashion after confirming a positive modified Bravo's test. Arterial access was obtained in the rig t radial artery and a 6 Azerbaijani sheath was inserted. 6 Azerbaijani Lee catheter was used to perform phillip ective angiography of the left and right coronary arteries. LVEDP and transaortic gradients were merlene sured. FINDINGS 1. Hemodynamics: Left ventricular end-diastolic pressure of 23 mmHg. No pullback gradient across th e aortic valve. 2. Coronary angiography: a. The left main coronary artery arose from the left sinus of Valsalva, gave rise to the left anteri or descending and left circumflex arteries and did not show any significant stenosis. b. The left anterior descending artery did not show any significant stenosis. c. The left circumflex artery did not show any significant stenosis. d. The right coronary artery was a large and dominant vessel arising from the right sinus of Valsalv a that showed thrombus in distal segment. This has improved from prior cardiac catheterization but h as not resolved. INTERVENTION The right coronary artery was engaged with a 6 Azerbaijani JR4 guide catheter and a 0.[address] guidewire was advanced across the lesion. Several aspiration thrombectomy passes were then perfo rmed using Pronto aspiration catheter without any significant improvement in the thrombus burden. He nce we decided to stent the lesion. This was successfully treated with a 4.5 x 26 mm resolute Sampson d rug-eluting stent. Follow-up angiography showed resolution of the lesion to 0% without any residual thrombus. There was spasm noted in the posterior descending branch that completely resolved after in tracoronary nitroglycerin injections. There was JEET-3 distal flow at the end of procedure. Patient tolerated the procedure well. Hemostasis was achieved using TR band. There were no immediate compl ications. JEET Flow JEET Flow (Pre-Intervention): JEET-3 JEET Flow (Post-Intervention): JEET-3 Conclusion 1. Acute myocardial infarction with thrombus in distal RCA, that did not resolve with heparin and Ag grastat infusions 2. Successful aspiration thrombectomy and PCI/drug-eluting stent placement to distal segment of righ t coronary artery Recommendations 1. Aspirin 81 mg daily 2. Ticagrelor 90 mg twice daily 3. Cardiovascular risk factor modification Signed by : Anrdés Garcia, Electronically Approved : 07/11/2021 12:44:56
[2021-07-11] MEDS ORDERED: ONDANSETRON PF 4 MG/2 ML VIAL. IVP PRN (13:15)
[2021-07-11] MEDS ORDERED: ONDANSETRON PF 4 MG/2 ML VIAL. IVP ONE (13:15)
--- NOTE | 2021-07-11 16:40 | NUR ---
Wound/Ostomy Care Wound Type/Assessment: Wound care consult for dihisced surgical ncision to left lateral ankle that has been there for several years. Pt is seeing her PCP and is working on getting in home wound care. Pt lives in [place]. Treatment Recommendations/Plan: Cleanse wound, aoply hydrofera blue and foam dressing. Change ever 3 days Education provided: WC POC and PU prevention Offloading surface/device: float heels, TQ2H, pt is self turn Recommended Referrals/Tests: na Discharge Recommendations for dressings: see above
[2021-07-11] MEDS ORDERED: ATORVASTATIN CALCIUM 20 MG TABLET PO SCH (21:00)
[2021-07-12] VITALS (13 sets, daily range): BP systolic 98–158; BP diastolic 63–99
[2021-07-12] MEDS: IV NORMAL SALINE 1000ML BAG 1,000 ML IV SCH (03:07)
[2021-07-12] MEDS: MORPHINE SULFATE 2 MG/ML INJ. IVP PRN (03:17)
[2021-07-12] MEDS: IPRATRPIUM/ALBUTEROL 0.5/2.5MG 3 ML NEBU. NEB SCH (08:55)
[2021-07-12] MEDS: TICAGRELOR 90 MG TABLET. PO SCH (09:12)
[2021-07-12] MEDS: METOPROLOL TART IMMED RELEASE 25 MG TABLET. PO SCH (09:12)
[2021-07-12] MEDS: LISINOPRIL 20 MG TABLET PO SCH (09:13)
[2021-07-12] MEDS: ASPIRIN ENTERIC COATED 81 MG TABLET.DR. PO SCH (09:13)
--- NOTE | 2021-07-12 09:28 | PDOC ---
[employer] PROGRESS NOTE Date of Service DOS: DATE: 07/12/21 TIME: : Chief Complaint Chief Complaint Acute coronary syndrome - right coronary artery occlusive disease, non- obstructing History of COPD. Will resume home medications. Morbid obesity - counseled on lifestyle modification History of Present Illness History of Present Illness Ms Mendoza is a 51 yo female admitted for chest pain and shortness of breath. We urgently to cardiac catheterization found with clot in the RCA some distal perfusion noted. Admitted to ICU on heparin gtt. 07/11: On nitroglycerin gtt. pain improved shortness of breath still present. Plan for coronary angiogram today with potential intervention on RCA. Discussed with patient bedside 07/12: Returned to coronary angiography with RCA selective thrombectomy and drug- eluting stent placement. Placed on Brilinta twice daily. Pain is improved shortness of breath improved today. Vitals/I&O Vitals/I&O: Vital Signs Date Time Temp Pulse Resp B/P (MAP) Pulse Ox O2 Delivery O2 Flow Rate FiO2 07/12/21 09:13 70 136/74 07/12/21 08:55 94 Nasal Cannula 3.0 07/12/21 08:00 97.7 20 97.7 I & O 07/11/21 07/11/21 07/12/21 15:00 23:00 07:00 Output Total 850 ml 150 ml 0 ml Balance -850 ml -150 ml 0 ml Physical Exam General: No acute distress Heart: Regular rate Abdomen: Normal bowel sounds Assessment and Plan Assessmemt and Plan Problems Medical Problems: (1) STEMI (ST elevation myocardial infarction) Status: Acute Comment Review of Relevant I have reviewed the following items leandro (where applicable) has been applied. Medications: Current Medications Medications (Trade) Dose Ordered Sig/Frankie Route PRN Reason Start Time Stop Time Status Last Admin Dose Admin Nitroglycerin (Nitroglycerin) 200 mcg 1X ONCE IART 07/11/21 11:45 07/11/21 11:51 DC 07/11/21 11:45 Verapamil HCl (Verapamil) 2.5 mg 1X ONCE IART 07/11/21 11:45 07/11/21 11:51 DC 07/11/21 11:45 Heparin Sodium (Porcine) (Heparin Sodium) 2,500 unit 1X ONCE IART 07/11/21 11:45 07/11/21 11:51 DC 07/11/21 11:45 Heparin Sodium/ Sodium Chloride (HEPARIN for ARTERIAL LINE FLUSH) 1,000 unit 1X ONCE IART 07/11/21 11:45 07/11/21 11:51 DC 07/11/21 11:45 Midazolam HCl (Versed) 2 mg 1X ONCE IV 07/11/21 11:45 07/11/21 11:51 DC 07/11/21 11:45 Fentanyl Citrate (Fentanyl 2ml Vial) 100 mcg 1X ONCE IV 07/11/21 11:45 07/11/21 11:51 DC 07/11/21 11:45 Iodixanol (Visipaque 320) 100 ml 1X ONCE IART 07/11/21 11:45 07/11/21 11:51 DC 07/11/21 11:45 Lidocaine HCl (Xylocaine-Mpf 1% 2ml Vial) 2 ml 1X ONCE INJ 07/11/21 11:45 07/11/21 11:51 DC 07/11/21 11:45 Nitroglycerin (Nitroglycerin) 200 mcg 1X ONCE IART 07/11/21 12:15 07/11/21 12:17 DC 07/11/21 12:15 Bivalirudin (Angiomax) 250 mg 1X ONCE IVP 07/11/21 12:15 07/11/21 12:17 DC 07/11/21 12:15 Atorvastatin Calcium (Lipitor) 40 mg QHS PO 07/11/21 21:00 07/11/21 21:11 Sodium Chloride 1,000 ml @ 75 mls/hr [id number] IV 07/11/21 12:30 07/11/21 13:35 Ondansetron HCl (Zofran) 8 mg 1X ONCE IVP 07/11/21 13:15 07/11/21 13:16 DC 07/11/21 13:22 Justifications for Admission Other Justification YAEL JORDAN MD Jul 12, 2021 09:27
--- NOTE | 2021-07-12 11:55 | PDOC ---
MITCHEL CASTELLANO PIPE P[employer]ER 07/12/21 1155: CARDIO Progress Notes Date and Time Date of Service 07/12/2021 Time of Evaluation 1130 Subjective Subjective: No Chest Pain, No shortness of breath, No Palpitations Vitals Vitals Vital Signs Date Time Temp Pulse Resp B/P (MAP) Pulse Ox O2 Delivery O2 Flow Rate FiO2 07/12/21 11:00 81 22 158/87 94 Nasal Cannula 07/12/21 10:00 3.0 07/12/21 08:00 97.7 97.7 Weight Weight [ ] Input and Output Intake and Output Intake and Output 07/12/21 07:00 Output Total 1000 ml Balance -1000 ml Output Urine Total 1000 ml # Voids 4 Physical Exam HEENT: Neck Supple W Full Motion Chest: Symmetric LUNGS: Other (diminished bases) Heart: RRR (SR) Abdomen: Soft N/T, Other (obese) Extremities: No Calf Tenderness, Other (diminished pedal pulses. Left ankle ulcer poor healing) Neurology: alert, oriented, follow commands Assessment Assessment 1. NSTEMI/ACS: noted with thrombus in distal RCA, that did not resolve with heparin and Aggrastat infusions. Successful aspiration thrombectomy and PCI/drug-eluting stent placement to distal segment of right coronary artery. EF and LV WM nml per TTE 2. COPD with tobaccoism 3. Suspect PAD with poor healing wound to left outer ankle 4. Morbid obesity 5. Anxiety: uses medical marijuana Recommendations 1. Aspirin 81 mg daily. Ticagrelor 90 mg twice daily 2. Wt loss. Secondary prevention measures 3. LE arterial duplex prior to DC 4. Follow up in office 5. Cardiac rehab, smoking cessation 6. wound care per PCP Justicifation of Admission Dx: Justifications for Admission: Justification of Admission Dx: Yes DIXIE CONTI MD 07/12/21 1815: CARDIO Progress Notes Assessment Assessment Patient seen and examined The patient looks and feels well and is pain-free. I agree with our nurse practitioners assessment and plan. NSTEMI/ACS: noted with thrombus in distal RCA, that did not resolve with heparin and Aggrastat infusions. Successful aspiration thrombectomy and PCI/drug-eluting stent placement to distal segment of right coronary artery. EF and LV WM nml per TTE. Continuing aspirin and Brilinta. COPD with tobaccoism Suspect PAD with poor healing wound to left outer ankle. Outpatient follow-up. Possibly near the patient's home. Morbid obesity Anxiety: uses medical marijuana MITCHEL CASTELLANO APRN Jul 12, 2021 11:55 DIXIE CONTI MD Jul 12, 2021 18:15
[2021-07-12] MEDS ORDERED: LISI20TA18 PO (12:03)
[2021-07-12] MEDS ORDERED: METO25TA4 PO (12:03)
[2021-07-12] MEDS ORDERED: ATOR40TA59 PO (12:03)
[2021-07-12] MEDS ORDERED: TICA90TA PO (12:03)
[2021-07-12] MEDS ORDERED: NITR0.4T22 SL (12:03)
--- NOTE | 2021-07-12 13:02 | PDOC3 ---
Discharge Summary Visit Information Date of Admission: Jul 09, 2021 Date of Discharge: Jul 12, 2021 Admitting Diagnosis: NSTEMI Final Diagnosis Problems Medical Problems: (1) STEMI (ST elevation myocardial infarction) Status: Acute Brief Hospital Course Allergies Allergies Coded Allergies Type Severity Reaction Last Updated Verified doxycycline Allergy Intermediate Rash 07/08/21 Yes meloxicam Allergy Intermediate 07/08/21 Yes Vital Signs Vital Signs Date Time Temp Pulse Resp B/P (MAP) Pulse Ox O2 Delivery O2 Flow Rate FiO2 07/12/21 12:02 98.1 72 20 142/87 94 Nasal Cannula 98.1 07/12/21 10:00 3.0 Lab Results Laboratory Tests Test 07/11/21 04:45 White Blood Count 6.4 x10^3/uL (4.0-11.0) Red Blood Count 4.10 x10^6/uL (3.50-5.40) Hemoglobin 13.4 g/dL (12.0-15.5) Hematocrit 39.6 % (36.0-47.0) Mean Corpuscular Volume 97 fL (79-100) Mean Corpuscular Hemoglobin 33 pg (25-35) Mean Corpuscular Hemoglobin Concent 34 g/dL (31-37) Red Cell Distribution Width 12.9 % (11.5-14.5) Platelet Count 144 x10^3/uL (140-400) Neutrophils (%) (Auto) 55 % (31-73) Lymphocytes (%) (Auto) 34 % (24-48) Monocytes (%) (Auto) 9 % (0-9) Eosinophils (%) (Auto) 2 % (0-3) Basophils (%) (Auto) 1 % (0-3) Neutrophils # (Auto) 3.5 x10^3/uL (1.8-7.7) Lymphocytes # (Auto) 2.1 x10^3/uL (1.0-4.8) Monocytes # (Auto) 0.5 x10^3/uL (0.0-1.1) Eosinophils # (Auto) 0.1 x10^3/uL (0.0-0.7) Basophils # (Auto) 0.0 x10^3/uL (0.0-0.2) Sodium Level 137 mmol/L (136-145) Potassium Level 3.8 mmol/L (3.5-5.1) Chloride Level 104 mmol/L (98-107) Carbon Dioxide Level 28 mmol/L (21-32) Anion Gap 5 (6-14) Blood Urea Nitrogen 11 mg/dL (7-20) Creatinine 0.8 mg/dL (0.6-1.0) Estimated GFR (Cockcroft-Gault) 76.2 Glucose Level 82 mg/dL (70-99) Calcium Level 8.4 mg/dL (8.5-10.1) Brief Hospital Course Ms Mendoza is a 51 yo female admitted for chest pain and shortness of breath while at a concert. She thinks she was taking some mushrooms and was smoking some marijuana. Went urgently to cardiac catheterization found with clot in the RCA some distal perfusion noted. Admitted to ICU on heparin gtt. he was brought to the emergency room and her EKG showed inferior ST elevation although no reciprocal changes. 07/11: On nitroglycerin gtt. pain improved shortness of breath still present. Plan for coronary angiogram today with potential intervention on RCA. Discussed with patient bedside 07/12: Returned to coronary angiography with RCA selective thrombectomy and drug- eluting stent placement on 07/12. Placed on Brilinta twice daily. Pain is improved shortness of breath improved today. Consults: Cardiology Problem list: Acute coronary syndrome - right coronary artery occlusive disease, non- obstructing History of COPD. Will resume home medications. Morbid obesity - counseled on lifestyle modification Left lateral ankle wound Seen by wound care for left lateral ankle wound and has been chronic for several years Plan: Outpatient cardiology follow-up. Based on insurance restrictions will need to [facility] swimming pool cleaner Cleanse wound, apply hydrofera blue and foam dressing. Change ever 3 days Discharge Information Condition at Discharge: Improved Follow Up: Weeks (1) Disposition/Orders: D/C to Home Scheduled Atorvastatin Calcium (Atorvastatin Calcium) 40 Mg Tablet, 1 TAB PO QHS for HLD/CAD for 90 Days, #90 Ref 3 Prescribed by: YAEL JORDAN MD on 07/12/21 1203 Lisinopril (Lisinopril) 20 Mg Tablet, 1 TAB PO DAILY for CAD/HTN for 90 Days, #90 Ref 3 Prescribed by: YAEL JORDAN MD on 07/12/21 1203 Metoprolol Tartrate (Metoprolol Tartrate) 25 Mg Tablet, 25 MG PO BID for CAD for 90 Days, #180 Ref 3 Prescribed by: YAEL JORDAN MD on 07/12/21 1203 Nitroglycerin (NITROGLYCERIN SubLingual) 0.4 Mg Tab.subl, 1 TAB SL UD for chest pain for 30 Days, #25 Ref 0 1st sign of attack; may repeat every 5 mins; if pain persists after 3 in 15 min, medical attention is recommended Prescribed by: YAEL JORDAN MD on 07/12/21 1203 Ticagrelor (Brilinta) 90 Mg Tablet, 90 MG PO BID for CAD for 90 Days, #180 Ref 3 Prescribed by: YAEL JORDAN MD on 07/12/21 1203 Justicifation of Admission Dx: Justifications for Admission: Justification of Admission Dx: Yes YAEL JORDAN MD Jul 12, 2021 13:02
--- NOTE | 2021-07-12 13:36 | NUR ---
discharge instructions reviewed with pt, all questions answered. Cath site dressing removed. Pt discharge instructions, education materials, all belongings sent with pt. Rx were sent electronically to pt pharmacy. Pt to follow up with [employer], phone number given. Tele and PIV were removed earlier.
--- NOTE | 2021-07-12 14:31 | RAD ---
MR#: [id number] Date of Study: 07/12/2021 Ordering Physician: DIXIE CONTI, Referring Physician: DIXIE CONTI, Tech: Azael Chanel MBA, RDMS, RVT, RDCS, RTR APPROVED REPORT Bilateral Lower Extremity Venous Study for DVT Patient Location: IN-PATIENT Indications Lower Extremity Edema: Bilateral Vein Imaging (Right) CFV (R): Compressible SFJ (R): Compressible FEM (R): Compressible POP (R): Compressible DFV (R): Compressible PTV (R): Spontaneous GSV (R): Spontaneous Peroneals (R): Spontaneous Vein Imaging (Left) CFV (L): Compressible SFJ (L): Compressible FEM (L): Compressible POP (L): Compressible DFV (L): Compressible PTV (L): Spontaneous GSV (L): Spontaneous Peroneals (L): Spontaneous Doppler Evaluation (Right) CFV (R): Spontaneous POP (R):Spontaneous Doppler Evaluation (Left) CFV (L):Spontaneous POP (L):Spontaneous Findings Grayscale images of the bilateral lower extremity deep veins were limited due to body habitus. Gross ly, no obvious proximal common femoral vein/superficial femoral vein DVT is noted. The mid to distal superficial femoral vein and popliteal veins were not well visualized but grossly did not show any o bvious evidence of thrombus. There is spontaneous flow noted on color Doppler and spectral imaging. Below the knees again were not well visualized in terms of the deep veins but overall no gross appea ashwini of DVT. Critical Notification Critical Value: No <Conclusion> 1. Technically difficult study but no clear evidence of DVT in the bilateral lower extremity Signed by : Edward Duenas, Electronically Approved : 07/12/2021 14:31:38
== END 2021-07-12 13:35 | disposition home or self-care (01) | DRG 247 ==
LOC: ER 22:28 → 1 WEST ICU 23:36 → ER 23:36 → 1 WEST ICU 07-09 01:54
PROVIDERS: ADMIT Internal Medicine; ATTEND Internal Medicine
PROC: 027034Z Dilation of Coronary Artery, One Artery with Drug-eluting Intraluminal Device, Percutaneous Approach (ICD-10-PCS; principal; 2021-07-11)
PROC: 02C03Z7 Extirpation of Matter from Coronary Artery, One Artery, Orbital Atherectomy Technique, Percutaneous Approach (ICD-10-PCS; 2021-07-11)
PROC: 4A023N7 Measurement of Cardiac Sampling and Pressure, Left Heart, Percutaneous Approach (ICD-10-PCS; 2021-07-11)
PROC: B2111ZZ Fluoroscopy of Multiple Coronary Arteries using Low Osmolar Contrast (ICD-10-PCS; 2021-07-11)
DX: I21.3 ST elevation (STEMI) myocardial infarction of unspecified site (principal); Z68.43 Body mass index [BMI] 50.0-59.9, adult; E66.01 Morbid (severe) obesity due to excess calories; F16.90 Hallucinogen use, unspecified, uncomplicated; F17.200 Nicotine dependence, unspecified, uncomplicated; F41.9 Anxiety disorder, unspecified; G89.29 Other chronic pain; I25.10 Atherosclerotic heart disease of native coronary artery without angina pectoris; J44.9 Chronic obstructive pulmonary disease, unspecified; Z79.899 Other long term (current) drug therapy; Z82.49 Family history of ischemic heart disease and other diseases of the circulatory system; Z88.8 Allergy status to other drugs, medicaments and biological substances
CPT/HCPCS: 36415; 71045; 80048; 80053; 80061; 83880; 84484; 85025; 85520; 85610; 85730; 87426; 92928; 93005; 93306; 93454; 93458; 93970; 94640; 94760; 96374; 99152; 99153; C1757; C1769; C1894; J0583; J1644; J2060; J2250; J2270; J2405; J3010; J3490; J7030; Q9967; U0003; 99285-25; C8929; C9600; G0378; J3246; J7613